=== PATIENT | male | born 1960 | race Caucasian/White ===

== ENCOUNTER 2021-03-21 11:17 | Observation (INO) | payer BC, MEDICARE ==
--- NOTE | 2021-03-21 11:25 | ERPHSYRPT ---
- History of Present Illness Time Seen by Provider: 03/21/21 11:25 Source: patient Exam Limitations: no limitations Physician History: This is a morbidly obese 60-year-old white male who has multiple medical problems including insulin-dependent diabetes, anxiety, hypertension and obesity who was diagnosed 1 week ago with COVID-19 infection at [facility] in [facility]. Patient states that the chest x-ray showed pneumonia. He was sent home with a prescription for Medrol Dosepak and azithromycin. He has completed those prescriptions. However, he continues to have cough, shortness of breath, arthralgias and myalgias. His room air oxygenation on entrance into the emergency department today is 94%. He denies chest pain. He denies nausea vomiting and diarrhea. Timing/Duration: week(s) (1) Cough Quality/Degree: moderate, dry cough Possible Cause: occasional episodes Modifying Factors: Improves With: coughing, deep breath Associated Symptoms: cough, shortness of breath Allergies/Adverse Reactions: No Known Drug Allergies Allergy (Verified 03/21/21 11:45) Home Medications: ARIPiprazole [Aripiprazole] 15 mg PO DAILY 03/21/21 [History] Alendronate Sodium 70 mg [Fosamax 70 MG] 70 mg PO WEEKLY 03/21/21 [History] Aspirin EC 81 mg [Ecotrin 81 mg] 81 mg PO DAILY 03/21/21 [History] Atorvastatin Calcium 80 mg PO DAILY 03/21/21 [History] Clopidogrel Bisulfate 75 mg [PLAVIX 75 MG Tablet] 75 mg PO DAILY 03/21/21 [History] Enalapril Maleate 10 mg [Vasotec 10 MG] 10 mg PO BID 03/21/21 [History] Ezetimibe 10 mg [Zetia 10 MG] 10 mg PO DAILY 03/21/21 [History] Fenofibrate,Micronized 145 mg* [Tricor 145 MG] 145 mg PO DAILY 03/21/21 [ History] Furosemide 40 mg [Lasix 40 MG] 40 mg PO DAILY 03/21/21 [History] Gabapentin 300 mg [Neurontin 300 mg] 300 mg PO DAILY 03/21/21 [History] Icosapent Ethyl [Vascepa] 2 gm PO BID 03/21/21 [History] Insulin Lispro [Humalog] 0 unit SQ TID 03/21/21 [History] Isosorbide Mononitrate 30 mg [Imdur 30 MG] 30 mg PO DAILY 03/21/21 [History] Metformin HCl 850 mg [Glucophage 850 MG] 850 mg PO BID 03/21/21 [History] Metoprolol Tartrate 25 mg [Lopressor 25MG Tab] 25 mg PO BID 03/21/21 [History] Potassium Chloride 10 meq PO DAILY 03/21/21 [History] Pramipexole Di-HCl [Pramipexole Dihydrochloride] 0.25 mg PO HS 03/21/21 [History] Venlafaxine HCl [Venlafaxine HCl ER] 75 mg PO DAILY 03/21/21 [History] Venlafaxine HCl [Venlafaxine HCl ER] 150 mg PO HS 03/21/21 [History] clonazePAM 0.5 mg PO HS 03/21/21 [History] Travel Risk - International Travel Have you traveled outside of the country in past 3 weeks: No - Coronavirus Screening Are you exhibiting any of the following symptoms?: No Close contact with a COVID-19 positive Pt in past 14-21 Days: No - Review of Systems Constitutional: No Symptoms Eyes: No Symptoms Ears, Nose, & Throat: No Symptoms Respiratory: Cough, Dyspnea Cardiac: No Symptoms Abdominal/Gastrointestinal: No Symptoms Genitourinary Symptoms: No Symptoms Musculoskeletal: No Symptoms Skin: No Symptoms Neurological: No Symptoms Psychological: No Symptoms Endocrine: No Symptoms Hematologic/Lymphatic: No Symptoms Immunological/Allergic: No Symptoms All Other Systems: Reviewed and Negative - Past Medical History Pertinent Past Medical History: Yes - Past Surgical History Past Surgical History: Yes - Nursing Vital Signs Nursing Vital Signs: Initial Vital Signs Temperature 99.2 F 03/21/21 11:26 Pulse Rate 104 H 03/21/21 11:26 Respiratory Rate 26 H 03/21/21 11:26 Blood Pressure 173/82 03/21/21 11:26 O2 Sat by Pulse Oximetry 95 03/21/21 11:26 Pain Scale Pain Intensity 0 - Physical Exam General Appearance: mild distress, alert, anxiety, obese Eye Exam: PERRL/EOMI, eyes nml inspection Ears, Nose, Throat Exam: normal ENT inspection, moist mucous membranes Neck Exam: normal inspection, non-tender, supple, full range of motion Respiratory Exam: normal breath sounds, lungs clear, airway intact, No chest tenderness, No respiratory distress Cardiovascular Exam: regular rate/rhythm, normal heart sounds, normal peripheral pulses Gastrointestinal/Abdomen Exam: soft, normal bowel sounds, No tenderness Rectal Exam: not done Back Exam: normal inspection, normal range of motion, No CVA tenderness, No vertebral tenderness Extremity Exam: normal inspection, normal range of motion, pelvis stable Neurologic Exam: alert, oriented x 3, cooperative, 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 Care 03/21/21 11:40 Active EKG-ER Only STAT Care 03/21/21 11:39 Active IV Insertion STAT Care 03/21/21 11:39 Active Pulse Oximetry (ED) STAT Care 03/21/21 11:39 Active CHEST 1 VIEW (PORTABLE) Stat Exams 03/21/21 11:39 Taken BLOOD CULTURE Stat Lab 03/21/21 12:04 Received CBC W DIFF Stat Lab 03/21/21 11:55 Completed CMP Stat Lab 03/21/21 11:55 Completed D-DIMER QUANTITATIVE Stat Lab 03/21/21 11:55 Completed INFLUENZA A+B WILL Stat Lab 03/21/21 12:07 Completed Lactic Acid Stat Lab 03/21/21 12:10 Completed Bland Screen Stat Lab 03/21/21 12:04 Completed NT PRO BNP Stat Lab 03/21/21 11:55 Completed TROPONIN Q3H Lab 03/21/21 11:55 Completed TROPONIN Q3H Lab 03/21/21 14:45 Ordered TROPONIN Q3H Lab 03/21/21 17:45 Ordered TROPONIN Q3H Lab 03/21/21 20:45 Ordered TROPONIN Q3H Lab 03/21/21 23:45 Ordered Medication Summary Generic Name Dose Route Start Last Admin Trade Name Geri PRN Reason Stop Dose Admin Sodium Chloride 1,000 mls @ 100 mls/hr 03/21/21 11:45 03/21/21 11:50 Sodium Chloride 0.9% 1000 Ml IV 04/20/21 11:44 100 mls/hr .Q10H NEEMA Administration Discontinued Medications Generic Name Dose Route Start Last Admin Trade Name Geri PRN Reason Stop Dose Admin Hydrocodone Bitart/Acetaminophen 15 ml 03/21/21 12:14 03/21/21 12:20 Hydrocodone/Acetaminophen 5 Ml Udcup PO 03/21/21 12:15 15 ml STAT STA Administration Hydrocodone Bitart/Acetaminophen Confirm 03/21/21 12:17 Hydrocodone/Acetaminophen 5 Ml Udcup Administered 03/21/21 12:18 Dose 15 ml .ROUTE .STK-MED ONE Albuterol Sulfate 8 gm 03/21/21 12:21 Albuterol Sulfate 8 Gm Mdi Hfa IH 03/21/21 12:22 STAT ONE Methylprednisolone Sodium 0 mg 03/21/21 11:41 03/21/21 11:50 Succinate 125 mg/ Sterile IV 03/21/21 11:42 125 mg Water 2 ml STAT ONE Administration Methylprednisolone Sodium Succinate Confirm 03/21/21 11:44 Methylprednis Sod Succ 125 Mg/2 Ml Vial Administered 03/21/21 11:45 Dose 125 mg .ROUTE .STK-MED ONE Sterile Water Confirm 03/21/21 11:44 Water For Injection,Sterile 10 Ml Vial Administered 03/21/21 11:45 Dose 10 ml IJ .STK-MED ONE Lab/Rad Data: Laboratory Result Diagrams 03/21/21 11:55 03/21/21 11:55 Laboratory Results 03/21/21 03/21/21 03/21/21 Range/Units 12:10 12:07 12:07 WBC (4.0-10.5) K/mm3 RBC (4.1-5.6) M/mm3 Hgb (12.5-18.0) gm/dl Hct (42-50) % MCV (78-100) fl MCH (26-32) pg MCHC (32-36) g/dl RDW (11.5-14.0) % Plt Count (150-450) K/mm3 MPV (7.5-11.0) fl Gran % (36.0-66.0) % Eos # (Auto) (0-0.5) Absolute Lymphs (auto) (1.0-4.6) Absolute Monos (auto) (0.0-1.3) Lymphocytes % (24.0-44.0) % Monocytes % (0.0-12.0) % Eosinophils % (0.00-5.0) % Basophils % (0.0-0.4) % Absolute Granulocytes (1.4-6.9) Basophils # (0-0.4) D-Dimer (215-500) ng/mL Sodium (137-145) mmol/L Potassium (3.5-5.1) mmol/L Chloride (98-107) mmol/L Carbon Dioxide (22-30) mmol/L Anion Gap (5-15) MEQ/L BUN (9-20) mg/dL Creatinine (0.66-1.25) mg/dL Estimated GFR ML/MIN Glucose (74-106) mg/dL Lactic Acid 3.2 H (0.4-2.0) Calcium (8.4-10.2) mg/dL Total Bilirubin (0.2-1.3) mg/dL AST (17-59) U/L ALT (0-50) U/L Alkaline Phosphatase (38-126) U/L Troponin I (0.000-0.034) ng/mL NT-Pro-B Natriuret Pep (0-900) pg/mL Serum Total Protein (6.3-8.2) g/dL Albumin (3.5-5.0) g/dL Monoscreen (Negative) Influenza Type A Ag NEGATIVE (NEGATIVE) Influenza Type B Ag NEGATIVE (NEGATIVE) Group A Strep Antibody NOT DETECTED (NEGATIVE) 03/21/21 03/21/21 03/21/21 Range/Units 12:04 11:55 11:55 WBC (4.0-10.5) K/mm3 RBC (4.1-5.6) M/mm3 Hgb (12.5-18.0) gm/dl Hct (42-50) % MCV (78-100) fl MCH (26-32) pg MCHC (32-36) g/dl RDW (11.5-14.0) % Plt Count (150-450) K/mm3 MPV (7.5-11.0) fl Gran % (36.0-66.0) % Eos # (Auto) (0-0.5) Absolute Lymphs (auto) (1.0-4.6) Absolute Monos (auto) (0.0-1.3) Lymphocytes % (24.0-44.0) % Monocytes % (0.0-12.0) % Eosinophils % (0.00-5.0) % Basophils % (0.0-0.4) % Absolute Granulocytes (1.4-6.9) Basophils # (0-0.4) D-Dimer 399 (215-500) ng/mL Sodium (137-145) mmol/L Potassium (3.5-5.1) mmol/L Chloride (98-107) mmol/L Carbon Dioxide (22-30) mmol/L Anion Gap (5-15) MEQ/L BUN (9-20) mg/dL Creatinine (0.66-1.25) mg/dL Estimated GFR ML/MIN Glucose (74-106) mg/dL Lactic Acid (0.4-2.0) Calcium (8.4-10.2) mg/dL Total Bilirubin (0.2-1.3) mg/dL AST (17-59) U/L ALT (0-50) U/L Alkaline Phosphatase (38-126) U/L Troponin I 0.127 H* (0.000-0.034) ng/mL NT-Pro-B Natriuret Pep (0-900) pg/mL Serum Total Protein (6.3-8.2) g/dL Albumin (3.5-5.0) g/dL Monoscreen NEGATIVE (Negative) Influenza Type A Ag (NEGATIVE) Influenza Type B Ag (NEGATIVE) Group A Strep Antibody (NEGATIVE) 03/21/21 03/21/21 Range/Units 11:55 11:55 WBC 6.2 (4.0-10.5) K/mm3 RBC 5.27 (4.1-5.6) M/mm3 Hgb 15.7 (12.5-18.0) gm/dl Hct 47.1 (42-50) % MCV 89.4 (78-100) fl MCH 29.8 (26-32) pg MCHC 33.3 (32-36) g/dl RDW 14.9 H (11.5-14.0) % Plt Count 153 (150-450) K/mm3 MPV 11.3 H (7.5-11.0) fl Gran % 66.6 H (36.0-66.0) % Eos # (Auto) 0 (0-0.5) Absolute Lymphs (auto) 1.10 (1.0-4.6) Absolute Monos (auto) 0.94 (0.0-1.3) Lymphocytes % 17.9 L (24.0-44.0) % Monocytes % 15.3 H (0.0-12.0) % Eosinophils % 0.0 (0.00-5.0) % Basophils % 0.2 (0.0-0.4) % Absolute Granulocytes 4.11 (1.4-6.9) Basophils # 0.01 (0-0.4) D-Dimer (215-500) ng/mL Sodium 135 L (137-145) mmol/L Potassium 3.9 (3.5-5.1) mmol/L Chloride 96 L (98-107) mmol/L Carbon Dioxide 27 (22-30) mmol/L Anion Gap 5.9 (5-15) MEQ/L BUN 16 (9-20) mg/dL Creatinine 0.81 (0.66-1.25) mg/dL Estimated GFR > 60.0 ML/MIN Glucose 222 H (74-106) mg/dL Lactic Acid (0.4-2.0) Calcium 9.1 (8.4-10.2) mg/dL Total Bilirubin 0.90 (0.2-1.3) mg/dL AST 129 H (17-59) U/L ALT 137 H (0-50) U/L Alkaline Phosphatase 75 (38-126) U/L Troponin I (0.000-0.034) ng/mL NT-Pro-B Natriuret Pep 462 (0-900) pg/mL Serum Total Protein 7.8 (6.3-8.2) g/dL Albumin 4.4 (3.5-5.0) g/dL Monoscreen (Negative) Influenza Type A Ag (NEGATIVE) Influenza Type B Ag (NEGATIVE) Group A Strep Antibody (NEGATIVE) - Progress Progress: improved Air Movement: fair Progress Note: 03/21/21 13:28 Chest x-ray shows bibasilar infiltrates without consolidation consistent with COVID-19 pneumonia Blood Culture(s) Obtained: Yes Antibiotics given: No Discussed with : Other (Dr. Mitchell) Counseled pt/family regarding: lab results, diagnosis, rad results - Departure Departure Disposition: In-patient Admission Clinical Impression: Pneumonia due to COVID-19 virus, NSTEMI (non-ST elevated myocardial infarction) Condition: Fair Critical Care Time: Yes Referrals: WANDY AHWKINS [Family Provider] - Follow up/PCP as directed
[2021-03-21] MEDS ORDERED: solu-MEDROL 125 MG, Sterile H2O 10 ml 2 ML IV ONE ×2 (11:41)
[2021-03-21] MEDS ORDERED: solu-MEDROL ONE (11:44)
[2021-03-21] MEDS ORDERED: Sterile H2O 10 ml IJ ONE (11:44)
[2021-03-21] MEDS ORDERED: Sodium Chloride 0.9% 1000 ML 1,000 ML ONE (11:44)
[2021-03-21] MEDS ORDERED: Sodium Chloride 0.9% 1000 ML 1,000 ML IV SCH (11:45)
[2021-03-21] MEDS ORDERED: HYDROCODONE-ACETAMIN 2.5-108/5 ML SOLUTION PO STA (12:14)
[2021-03-21] MEDS ORDERED: HYDROCODONE-ACETAMIN 2.5-108/5 ML SOLUTION ONE (12:17)
[2021-03-21 12:18] LABS: Absolute Neutrophil Ct (ANC) 4.11 (1.4-6.9); Basophil (Absolute #) 0.01 (0-0.4); Eosinophil (Absolute #) 0 (0-0.5); Hematocrit 47.1 % (42-50); Hemoglobin 15.7 gm/dl (12.5-18.0); Lymphocytes % 17.9 % (24.0-44.0); Mean Cell Volume 89.4 fl (78-100); Mean Corpuscular Hemoglobin 29.8 pg (26-32); Mean Corpuscular Hgb Concent. 33.3 g/dl (32-36); Mean Platelet Volume 11.3 fl (7.5-11.0); Monocyte (Absolute #) 0.94 (0.0-1.3); Monocytes % 15.3 % (0.0-12.0); Neutrophil % 66.6 % (36.0-66.0); Platelet Count 153 K/mm3 (150-450); Red Blood Count 5.27 M/mm3 (4.1-5.6); Red Cell Distribution Width 14.9 % (11.5-14.0); White Blood Count 6.2 K/mm3 (4.0-10.5)
[2021-03-21] MEDS ORDERED: Ventolin Hfa MDI IH ONE (12:21)
[2021-03-21 12:31] LABS: ALBUMIN 4.4 g/dL (3.5-5.0); ALKALINE PHOSPHATASE 75 U/L (38-126); BLOOD UREA NITROGEN 16 mg/dL (9-20); CHLORIDE 96 mmol/L (98-107); Calcium 9.1 mg/dL (8.4-10.2); Carbon Dioxide 27 mmol/L (22-30); Creatinine 1 0.81 mg/dL (0.66-1.25); EST GLOMERULAR FILTRATION RATE > 60.0 ML/MIN; Glucose 222 mg/dL (74-106); Potassium 3.9 mmol/L (3.5-5.1); SGOT/AST 129 U/L (17-59); SGPT/ALT 137 U/L (0-50); SODIUM 135 mmol/L (137-145); Total Protein 7.8 g/dL (6.3-8.2)
[2021-03-21 12:32] LABS: ANION GAP 5.9 MEQ/L (5-15)
[2021-03-21 12:36] LABS: NT PRO BNP 462 pg/mL (0-900)
[2021-03-21 12:37] LABS: INFLUENZA A NEGATIVE (NEGATIVE); INFLUENZA B NEGATIVE (NEGATIVE)
[2021-03-21] MEDS ORDERED: VENTOLIN COMMON CANISTER IH ONE (13:25)
[2021-03-21] MEDS ORDERED: ENOXAPARIN SODIUM SQ STA (13:33)
[2021-03-21] MEDS ORDERED: XYLOCAINE HCl Viscous MM ONE (13:57)
[2021-03-21] MEDS ORDERED: XYLOCAINE HCl Viscous ONE (14:06)
[2021-03-21] MEDS ORDERED: ENOXAPARIN SODIUM SQ ONE (14:06)
[2021-03-21] MEDS ORDERED: HUMALOG SQ PRN ×2 (14:49→17:42)
[2021-03-21] MEDS ORDERED: Zofran 4 MG/2 ML VIAL IV PRN (14:49)
[2021-03-21] MEDS ORDERED: HYDROCODONE-CHLORPHEN ER SUSP PO PRN (14:49)
[2021-03-21] MEDS ORDERED: TYLENOL EXTRA STRENGTH 500 MG PO PRN (14:49)
[2021-03-21] MEDS ORDERED: Ativan 1 MG PO PRN (14:49)
[2021-03-21] MEDS: Sodium Chloride 0.9% 1000 ML 1,000 ML IV SCH (15:51)
[2021-03-21] MEDS ORDERED: REMDESIVIR 200 MG in Sodium Chloride 0.9% 250 ML 250 ML IV ONE (16:00)
[2021-03-21] MEDS ORDERED: MEDICATION INTERVENTION MC SCH (16:45)
[2021-03-21] MEDS: Abilify 10 MG PO SCH (16:55)
[2021-03-21] MEDS: Glucophage 850 MG PO SCH (16:57)
[2021-03-21] MEDS: Klor Con 10 MEQ PO SCH (17:00)
[2021-03-21] MEDS ORDERED: NON-FORMULARY ITEM SQ SCH (17:00)
[2021-03-21] MEDS ORDERED: PATIENT OWN MEDICATION SQ SCH (17:00)
[2021-03-21] MEDS: Imdur 30 MG PO SCH (17:01)
[2021-03-21] MEDS: ECOTRIN 81 MG PO SCH (17:01)
[2021-03-21] MEDS: PLAVIX 75 MG Tablet PO SCH (17:01)
[2021-03-21] MEDS: ZOCOR 20MG PO SCH (17:01)
[2021-03-21] MEDS: NEURONTIN 300 MG PO SCH (17:01)
[2021-03-21] MEDS: Lasix 40 MG PO SCH (17:02)
[2021-03-21] MEDS: Tricor 145 MG PO SCH (17:02)
[2021-03-21] MEDS ORDERED: Nicoderm CQ 21 MG TOP SCH ×2 (17:30→22:00)
[2021-03-21] MEDS ORDERED: Ativan 2 MG/1 ML VIAL IV PRN (17:42)
--- NOTE | 2021-03-21 18:54 | XRAY ---
Indication: Cough. Positive Covid 19. Comparison: None Portable chest demonstrates bilateral mid to lower lung hazy interstitial alveolar opacities without consolidation/large effusion. Heart not enlarged. Bony thorax intact with mild osteopenia and degenerative changes.
[2021-03-21] MEDS: VENTOLIN COMMON CANISTER IH SCH (19:20)
[2021-03-21] MEDS: Vasotec 10 MG PO SCH (21:52)
[2021-03-21] MEDS: Lopressor 50 MG PO SCH (21:52)
[2021-03-21] MEDS ORDERED: Zetia 10 MG PO SCH (22:00)
[2021-03-21] MEDS ORDERED: clonazePAM PO SCH (22:00)
[2021-03-21] MEDS ORDERED: Effexor XR 75 MG PO SCH (22:00)
[2021-03-21] MEDS ORDERED: NON-FORMULARY ITEM (Icosapent Ethyl [Vascepa] 1 GM Capsule) PO SCH (22:00)
[2021-03-21] MEDS ORDERED: NON-FORMULARY ITEM (Pramipexole Di-Hcl [Pramipexole Dihydrochloride] 0.25 MG Tablet) PO SCH (22:00)
[2021-03-21] MEDS ORDERED: Mirapex 0.5 MG Tablet PO SCH (22:00)
[2021-03-21] MEDS ORDERED: Lopressor 25MG Tab PO SCH (22:00)
[2021-03-21] MEDS ORDERED: NON-FORMULARY ITEM (Venlafaxine Hcl [Venlafaxine Hcl Er] 150 MG Tab.Er.24) PO SCH (22:00)
[2021-03-22] MEDS: Sodium Chloride 0.9% 1000 ML 1,000 ML IV SCH (05:53)
[2021-03-22 06:38] LABS: Hematocrit 45.9 % (42-50); Hemoglobin 15.1 gm/dl (12.5-18.0); Mean Cell Volume 89.8 fl (78-100); Mean Corpuscular Hemoglobin 29.5 pg (26-32); Mean Corpuscular Hgb Concent. 32.9 g/dl (32-36); Mean Platelet Volume 11.6 fl (7.5-11.0); Platelet Count 182 K/mm3 (150-450); Red Blood Count 5.11 M/mm3 (4.1-5.6); Red Cell Distribution Width 14.6 % (11.5-14.0); White Blood Count 4.5 K/mm3 (4.0-10.5)
[2021-03-22] MEDS: VENTOLIN COMMON CANISTER IH SCH (07:08)
[2021-03-22 07:13] LABS: ALBUMIN 4.1 g/dL (3.5-5.0); ALKALINE PHOSPHATASE 62 U/L (38-126); ANION GAP 15.7 MEQ/L (5-15); BLOOD UREA NITROGEN 25 mg/dL (9-20); CHLORIDE 99 mmol/L (98-107); Calcium 8.9 mg/dL (8.4-10.2); Carbon Dioxide 29 mmol/L (22-30); Creatinine 1 0.95 mg/dL (0.66-1.25); EST GLOMERULAR FILTRATION RATE > 60.0 ML/MIN; Potassium 4.2 mmol/L (3.5-5.1); SGOT/AST 73 U/L (17-59); SGPT/ALT 117 U/L (0-50); SODIUM 140 mmol/L (137-145); Total Protein 7.2 g/dL (6.3-8.2)
[2021-03-22 07:42] LABS: Glucose 49 mg/dL (74-106)
[2021-03-22] MEDS ORDERED: HYDROCODONE-ACETAMIN 10-325 MG PO PRN (07:42)
[2021-03-22] MEDS: Glucophage 850 MG PO SCH (07:53)
[2021-03-22 08:04] VITALS: BP 105/80
[2021-03-22] MEDS: NEURONTIN 300 MG PO SCH (09:06)
[2021-03-22] MEDS: PLAVIX 75 MG Tablet PO SCH (09:06)
[2021-03-22] MEDS: Lasix 40 MG PO SCH (09:06)
[2021-03-22] MEDS: Imdur 30 MG PO SCH (09:06)
[2021-03-22] MEDS: Lopressor 50 MG PO SCH (09:07)
[2021-03-22] MEDS: Vasotec 10 MG PO SCH (09:07)
[2021-03-22] MEDS: Klor Con 10 MEQ PO SCH (09:08)
[2021-03-22] MEDS: ECOTRIN 81 MG PO SCH (09:08)
[2021-03-22] MEDS: Abilify 10 MG PO SCH (09:08)
[2021-03-22] MEDS: ZOCOR 20MG PO SCH (09:08)
[2021-03-22] MEDS: Tricor 145 MG PO SCH (09:10)
[2021-03-22] MEDS ORDERED: NON-FORMULARY ITEM (Atorvastatin Calcium [Atorvastatin Calcium] 80 MG Tablet) PO SCH (10:00)
[2021-03-22] MEDS ORDERED: ENOXAPARIN SODIUM SQ SCH ×2 (10:00)
[2021-03-22] MEDS ORDERED: ARIPIPRAZOLE 15 MG PO SCH (10:00)
[2021-03-22] MEDS ORDERED: DECADRON 10MG INJ. IV SCH (10:00)
[2021-03-22 10:43] VITALS: PULSE 75; O2SAT 96
[2021-03-22] MEDS ORDERED: REMDESIVIR 100 MG in Sodium Chloride 0.9% 100 ML BAG 100 ML IV SCH (16:00)
--- NOTE | 2021-03-23 11:19 | HP ---
CHIEF COMPLAINT: Muscle pain, achiness, cannot sleep, cough, positive COVID test. HISTORY OF PRESENT ILLNESS: The patient is a 60-year-old white male who was seen at [facility] and diagnosed with COVID. He was told he had COVID pneumonia and was sent home on Medrol Dosepak and Zithromax. He completed his prescription however he continues to have a cough, shortness of breath, arthralgia and myalgia. His O2 saturation was 94% and he returned to the emergency room. He denies chest pain. He does not have any nausea, vomiting or diarrhea. No problems eating. Just mainly the pain, shortness of breath and feeling terrible. TRAVEL RISK: He has not gone any place except for [facility] when started the coughing and feeling bad one week ago. CORONAVIRUS SCREENING: He states he has not been in contact with any COVID. MEDICATIONS: Home medications of Aripiprazole 15 q.d., alendronate 70 mg once a week, aspirin 81 q.d., atorvastatin 80 q.d., Plavix 75 q.d., Vasotec 10 b.i.d., Zetia 10 mg q.d., Tricor 140 q.d., Lasix 40 q.d., Neurontin 300 q.d., Vascepa 2 gm b.i.d., Humalog 10 before meals, isosorbide mononitrate 30 q.d., Glucophage 850 q.d., Lopressor 25 b.i.d., KCL 10 q.d., Pramipexole 0.25 q.d., Effexor Extended Release 75 q.d. and 150 q.d., clonazepam 0.5 h.s. ALLERGIES: NKDA. PAST MEDICAL HISTORY: He has multiple health problems including morbid obesity, diabetes mellitus, chronic obstructive pulmonary disease, arthritis, coronary artery disease and hyperlipidemia. PAST SURGICAL HISTORY: Tonsillectomy. Appendectomy. Orthopedic surgery. REVIEW OF SYSTEMS: CONSTITUTIONAL: Aching all over. HEENT: Eyes - No symptoms. Sore throat. CHEST: Frequent cough mildly productive. CVS: No symptoms. He has had a heart attack in the past. He has hyperlipidemia. ABDOMEN: No nausea or vomiting. MUSCULOSKELETAL: Just achiness all over his chest muscles, leg muscles, back. PSYCHOLOGIC: The patient suffers from chronic anxiety. PHYSICAL EXAMINATION: The patient is alert, orientated, heavy man who is pleasant and is eating very well. VITAL SIGNS: Temperature 99F, pulse 104, respirations 26, blood pressure 170/80. O2 saturation 95%. HEENT: Pupils equal and reactive to light. NECK: No lymph nodes. No thyromegaly. CHEST: Clear. CVS: No murmurs or gallops. ABDOMEN: Soft, obese. No masses or organomegaly. SKIN: Warm, dry. No cyanosis. LAB DATA AND TESTS: EKG sinus tach left bundle branch block. No acute changes. IMPRESSION: The patient has COVID with some residual symptoms. It seems to make him feel extremely bad. He seems to be very worried about that and his chronic anxiety made worse by the COVID symptoms. He was told that he had bilateral pneumonia at [facility]. His chest x-ray is not bad right now here. His lactic acid is slightly at high at 3.2. His D-dimer is normal at 399, white count 6.2. The troponin is minimally elevated at 0.127 which we usually see with the COVID. He is having no chest pain, no angina he states. Liver enzymes are mildly elevated AST 129, ALT 137 probably related to weight. BNP is normal at 460. His chest x-ray does show bibasilar infiltrates without consolidation. PLAN: The patient will be treated with COVID drugs including Remdesivir and Decadron. I think we will anticoagulate him due to elevated troponin. PROGNOSIS: Morris to be quite good.
--- NOTE | 2021-03-24 12:47 | DS ---
ADMISSION DIAGNOSES: 1) COVID. 2) Gastroenteritis. 3) Diabetes mellitus insulin dependent. 4) Hypertension. 5) Obesity. 6) COVID pneumonia. DISCHARGE DIAGNOSES: 1) COVID PNEUMONIA. 2) GASTROENTERITIS. 3) DIABETES MELLITUS INSULIN DEPENDENT. 4) HYPERTENSION. 5) OBESITY. 6) COVID PNEUMONIA. 7) CHRONIC ANXIETY. 8) HYPERLIPIDEMIA. HOSPITAL COURSE: The patient was treated with Remdesivir, Decadron, anticoagulation with Lovenox. He had severe achiness. Shortness of breath improved during basically the two day stay. He did not require oxygen. His O2 stayed above 90%. He had some blood cultures that were positive however he never ran any temperatures, white count is normal and I feel that is contaminant. His labs were really normal. BNP was 377. D-dimer 431. He was discharged home on his home medications to follow up with his physician in two weeks. PROGNOSIS: Good.
[2021-03-27] MEDS ORDERED: Fosamax 70 MG PO SCH (06:00)
== END 2021-03-22 11:45 | disposition home or self-care (01) ==
LOC: ED 11:17 → MED SURG 14:45 → INTOOBSV 14:46 → OBSVTOIN 14:46
PROVIDERS: ADMIT Family Medicine; ATTEND Family Medicine
DX: U07.1 COVID-19 (principal); J12.82 Pneumonia due to coronavirus disease 2019; K52.9 Noninfective gastroenteritis and colitis, unspecified; E11.9 Type 2 diabetes mellitus without complications; I10 Essential (primary) hypertension; E66.9 Obesity, unspecified; F41.9 Anxiety disorder, unspecified; E78.5 Hyperlipidemia, unspecified; J44.9 Chronic obstructive pulmonary disease, unspecified; I25.10 Atherosclerotic heart disease of native coronary artery without angina pectoris; Z79.899 Other long term (current) drug therapy; Z79.01 Long term (current) use of anticoagulants
CPT/HCPCS: 36415; 71045; 80053; 83036; 83605; 83880; 84484; 85025; 85027; 85379; 86308; 87040; 87400; 87651; 93005; 93041; 93268; 94640; 94660; 94760; 94762; 96372; 96374; 99285; G0378; J0248; J1100; J1650; J2930; A9270-GY

== ENCOUNTER 2021-03-25 15:45 | Observation (INO) | payer MEDICARE ==
[2021-03-25] MEDS ORDERED: REMDESIVIR 200 MG in Sodium Chloride 0.9% 250 ML 250 ML IV ONE (16:23)
[2021-03-25] MEDS ORDERED: DECADRON 10MG INJ. IV ONE (16:23)
[2021-03-25] MEDS ORDERED: DECADRON 10MG INJ. ONE (16:38)
[2021-03-25 17:01] LABS: Mean Cell Volume 88.7 fl (78-100); Mean Corpuscular Hemoglobin 29.6 pg (26-32); Mean Corpuscular Hgb Concent. 33.3 g/dl (32-36); Mean Platelet Volume 11.1 fl (7.5-11.0); Platelet Count 204 K/mm3 (150-450); Red Blood Count 5.41 M/mm3 (4.1-5.6); Red Cell Distribution Width 14.4 % (11.5-14.0); White Blood Count 6.7 K/mm3 (4.0-10.5)
--- NOTE | 2021-03-25 17:02 | XRAY ---
Indication: Short of breath. Comparison: March 21, 2021. Portable chest unchanged again demonstrating mild bilateral mid to lower lung hazy interstitial alveolar opacities without consolidation/large effusion. Heart not enlarged. No new cardiopulmonary abnormalities.
[2021-03-25 17:12] LABS: ALBUMIN 4.1 g/dL (3.5-5.0); ALKALINE PHOSPHATASE 99 U/L (38-126); ANION GAP 14.9 MEQ/L (5-15); BLOOD UREA NITROGEN 19 mg/dL (9-20); CHLORIDE 101 mmol/L (98-107); Calcium 9.5 mg/dL (8.4-10.2); Carbon Dioxide 27 mmol/L (22-30); Creatinine 1 0.66 mg/dL (0.66-1.25); EST GLOMERULAR FILTRATION RATE > 60.0 ML/MIN; Glucose 191 mg/dL (74-106); Potassium 4.1 mmol/L (3.5-5.1); SGOT/AST 94 U/L (17-59); SGPT/ALT 136 U/L (0-50); SODIUM 139 mmol/L (137-145); Total Protein 7.1 g/dL (6.3-8.2)
--- NOTE | 2021-03-25 17:53 | ERPHSYRPT ---
- History of Present Illness Time Seen by Provider: 03/25/21 15:55 Source: patient Exam Limitations: no limitations Patient Subjective Stated Complaint: Pt states "I cannot breath." Triage Nursing Assessment: Pt presented alert and oriented X 3, skin pwd. Pt ambulates with an upright steady gait, able to speak in clear full sentences. Pt tachypniec, occasional cough. Pt respirations eased as he sat on bed. Physician History: Patient is a 60-year-old male recently discharged from our hospital Covid unit presents to our ED with progressive shortness of breath. Patient states "I cannot breathe". Shortness of breath worse with exertion. Symptoms improved with rest. Patient was tachypneic upon arrival. No chest pain. Patient admits to occasional dry coughs. No nausea or vomiting. No diaphoresis. No rash. No fever. No diarrhea. Symptoms are moderate in intensity. Patient voices no other complaints or concerns at this time. Timing/Duration: today Activities at Onset: none Severity of Dyspnea-Max: moderate Severity of Dyspnea-Current: mild Possible Cause: occasional episodes, illness exposure (Covid positive) Modifying Factors: Improves With: activity Associated Symptoms: cough, No edema, No fever, No loss of appetite, No wheezing, No weakness, No ankle swelling, No dizziness, No lightheadedness, No leg swelling, No muscle spasms feet, No muscle spasms hands, No tightness Allergies/Adverse Reactions: No Known Drug Allergies Allergy (Verified 03/21/21 15:45) Home Medications: ARIPiprazole [Aripiprazole] 15 mg PO DAILY 03/21/21 [History] Alendronate Sodium 70 mg [Fosamax 70 MG] 70 mg PO WEEKLY 03/21/21 [History] Aspirin EC 81 mg [Ecotrin 81 mg] 81 mg PO DAILY 03/21/21 [History] Atorvastatin Calcium 80 mg PO DAILY 03/21/21 [History] Clopidogrel Bisulfate 75 mg [PLAVIX 75 MG Tablet] 75 mg PO DAILY 03/21/21 [History] Enalapril Maleate 10 mg [Vasotec 10 MG] 10 mg PO BID 03/21/21 [History] Ezetimibe 10 mg [Zetia 10 MG] 10 mg PO HS 03/21/21 [History] Fenofibrate,Micronized 145 mg* [Tricor 145 MG] 145 mg PO DAILY 03/21/21 [ History] Furosemide 40 mg [Lasix 40 MG] 40 mg PO DAILY 03/21/21 [History] Gabapentin 300 mg [Neurontin 300 mg] 300 mg PO DAILY 03/21/21 [History] Icosapent Ethyl [Vascepa] 2 gm PO BID 03/21/21 [History] Insulin Lispro [Humalog] 0 unit SQ TID 03/21/21 [History] Isosorbide Mononitrate 30 mg [Imdur 30 MG] 30 mg PO DAILY 03/21/21 [History] Metformin HCl 850 mg [Glucophage 850 MG] 850 mg PO BID 03/21/21 [History] Metoprolol Tartrate 25 mg [Lopressor 25MG Tab] 25 mg PO BID 03/21/21 [History] Potassium Chloride 10 meq PO DAILY 03/21/21 [History] Pramipexole Di-HCl [Pramipexole Dihydrochloride] 0.25 mg PO HS 03/21/21 [History] Venlafaxine HCl [Venlafaxine HCl ER] 150 mg PO HS 03/21/21 [History] clonazePAM 0.5 mg PO HS 03/21/21 [History] Hx Tetanus, Diphtheria Vaccination/Date Given: No Hx Influenza Vaccination/Date Given: Yes Hx Pneumococcal Vaccination/Date Given: Yes Immunizations Up to Date: Yes Travel Risk - International Travel Have you traveled outside of the country in past 3 weeks: No - Coronavirus Screening Are you exhibiting any of the following symptoms?: Yes Symptoms: Cough: New Onset, Shortness of Breath Close contact with a COVID-19 positive Pt in past 14-21 Days: No - Vaccine Status Have you recieved a Covid-19 vaccination: Yes 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 - Vaccination Dates Date of 2cond Vaccination (if applicable): unknown - Review of Systems Constitutional: No Symptoms, No Fever, No Chills Eyes: No Symptoms Ears, Nose, & Throat: No Symptoms Respiratory: No Symptoms, No Cough, No Dyspnea Cardiac: No Symptoms, No Chest Pain, No Edema, No Syncope Abdominal/Gastrointestinal: No Symptoms, No Abdominal Pain, No Nausea, No V omiting, No Diarrhea Genitourinary Symptoms: No Symptoms, No Dysuria Musculoskeletal: No Symptoms, No Back Pain, No Neck Pain Skin: No Symptoms, No Rash Neurological: No Symptoms, No Dizziness, No Focal Weakness, No Sensory Changes Psychological: No Symptoms Endocrine: No Symptoms Hematologic/Lymphatic: No Symptoms Immunological/Allergic: No Symptoms All Other Systems: Reviewed and Negative - Past Medical History Pertinent Past Medical History: Yes Cardiac History: Congestive Heart Failure, Hypertension Respiratory History: COPD Endocrine Medical History: Diabetes Type II Psycho-Social History: Anxiety, Depression - Past Surgical History Past Surgical History: Yes Gastrointestinal: Appendectomy Musculoskeletal: Orthopedic Surgery - Social History Smoking Status: Current every day smoker How long have you smoked: years Exposure to second hand smoke: Yes Drug Use: none Patient Lives Alone: No - Nursing Vital Signs Nursing Vital Signs: Initial Vital Signs Temperature 97.6 F 03/25/21 15:50 Pulse Rate 105 H 03/25/21 15:50 Respiratory Rate 28 H 03/25/21 15:50 Blood Pressure 180/77 03/25/21 15:50 O2 Sat by Pulse Oximetry 95 03/25/21 15:50 Pain Scale Pain Intensity 4 - Physical Exam General Appearance: no apparent distress, alert, No other Eye Exam: PERRL/EOMI, eyes nml inspection, No scleral icterus Ears, Nose, Throat Exam: hearing grossly normal, normal ENT inspection, normal pharynx Neck Exam: normal inspection, supple, full range of motion, No non-tender Respiratory Exam: respiratory distress, airway intact, diminished breath sounds, accessory muscle use, rhonchi Cardiovascular/Chest Exam: normal heart sounds, regular rate/rhythm, normal peripheral pulses Abdominal/Gastrointestinal Exam: soft, normal bowel sounds, No tenderness, No distention, No mass, No guarding Extremity Exam: non-tender, normal range of motion, normal inspection, no calf tenderness, no pedal edema Neurologic Exam: alert, oriented x 3, 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 No reciprocal changes.), NORMAL AXIS - Radiology Exams Chest X-ray Interpretation: Teleradiologist Report (Portable chest unchanged again demonstrating mild bilateral mid to lower lung hazy interstitial alveolar opacities without consolidation or large effusion. Heart not enlarged. No new cardiopulmonary abnormalities.) - CT Exams Chest CT Interpretation: Tele-radiologist Report (No comps. Respiration artifact limits PE evaluation. No central PE. 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 03/25/21 16:22 Active IV Insertion STAT Care 03/25/21 16:22 Active Pulse Oximetry (ED) STAT Care 03/25/21 16:22 Active CHEST 1 VIEW (PORTABLE) Stat Exams 03/25/21 16:22 Completed CHEST WITH CONTRAST [CT] Stat Exams 03/25/21 18:10 Taken BLOOD CULTURE Stat Lab 03/25/21 16:48 Received CBC W DIFF Stat Lab 03/25/21 16:10 Completed CMP Stat Lab 03/25/21 16:10 Completed Manual Differential NC Stat Lab 03/25/21 16:10 Completed TROPONIN Q3H Lab 03/25/21 16:10 Completed TROPONIN Q3H Lab 03/25/21 19:30 Ordered TROPONIN Q3H Lab 03/25/21 22:30 Ordered TROPONIN Q3H Lab 03/26/21 01:30 Ordered TROPONIN Q3H Lab 03/26/21 04:30 Ordered Transfer Order Routine Transfer 03/25/21 Ordered Medication Summary Generic Name Dose Route Start Last Admin Trade Name Freq PRN Reason Stop Dose Admin Albuterol Sulfate 4 puff 03/25/21 18:12 Albuterol Common Canister Inhaler IH 04/24/21 18:11 Q4H PRN PRN SHORTNESS OF BREATH/WHEEZING Discontinued Medications Generic Name Dose Route Start Last Admin Trade Name Freq PRN Reason Stop Dose Admin Dexamethasone Sodium Phosphate 8 mg 03/25/21 16:23 03/25/21 16:41 Dexamethasone Sod Phosphate 10 Mg/Ml IV 03/25/21 16:24 8 mg STAT ONE Administration Dexamethasone Sodium Phosphate Confirm 03/25/21 16:38 Dexamethasone Sod Phosphate 10 Mg/Ml Administered 03/25/21 16:39 Dose 10 mg .ROUTE .STK-MED ONE Enoxaparin Sodium 40 mg 03/25/21 18:04 03/25/21 18:08 Enoxaparin Sodium 40 Mg/0.4 Ml Syringe SQ 03/25/21 18:05 40 mg STAT ONE Administration Enoxaparin Sodium Confirm 03/25/21 18:06 Enoxaparin Sodium 80 Mg/0.8 Ml Syringe Administered 03/25/21 18:07 Dose 80 mg SQ .STK-MED ONE Remdesivir 200 mg/ Sodium 250 mls @ 125 mls/hr 03/25/21 16:23 03/25/21 16:40 Chloride IV 03/25/21 18: Not Given ONCE ONE Lab/Rad Data: Laboratory Result Diagrams 03/25/21 16:10 03/25/21 16:10 Laboratory Results 03/25/21 03/25/21 03/25/21 Range/Units 16:10 16:10 16:10 WBC 6.7 (4.0-10.5) K/mm3 RBC 5.41 (4.1-5.6) M/mm3 Hgb 16.0 (12.5-18.0) gm/dl Hct 48.0 (42-50) % MCV 88.7 (78-100) fl MCH 29.6 (26-32) pg MCHC 33.3 (32-36) g/dl RDW 14.4 H (11.5-14.0) % Plt Count 204 (150-450) K/mm3 MPV 11.1 H (7.5-11.0) fl Segmented Neutrophils 66 (36.-66.) % Band Neutrophils 1 (0.0-2.0) % Lymphocytes (Manual) 27 (24-44) % Monocytes (Manual) 5 (0.0-12.0) % Eosinophils (Manual) 1 (0.00-3.0) % Platelet Estimate NORMAL (NORMAL) RBC Morphology NORMAL Sodium 139 (137-145) mmol/L Potassium 4.1 (3.5-5.1) mmol/L Chloride 101 (98-107) mmol/L Carbon Dioxide 27 (22-30) mmol/L Anion Gap 14.9 (5-15) MEQ/L BUN 19 (9-20) mg/dL Creatinine 0.66 (0.66-1.25) mg/dL Estimated GFR > 60.0 ML/MIN Glucose 191 H (74-106) mg/dL Calcium 9.5 (8.4-10.2) mg/dL Total Bilirubin 0.60 (0.2-1.3) mg/dL AST 94 H (17-59) U/L ALT 136 H (0-50) U/L Alkaline Phosphatase 99 (38-126) U/L Troponin I 0.017 (0.000-0.034) ng/mL Serum Total Protein 7.1 (6.3-8.2) g/dL Albumin 4.1 (3.5-5.0) g/dL - Progress Progress: improved Air Movement: good Progress Note: Patient reassessed. Patient comfortable at rest. Patient become somewhat tachypneic during conversation. CTA chest reveals mild bilateral mid to lower lung peripheral patchy airspace disease without effusion or consolidation. The chest x-ray appears unchanged from previous. Glucose 191. Mild transaminitis. Patient received Decadron, remdesivir, Lovenox and albuterol. Case discussed with Dr. Mitchell who accepts admission to observation. 03/25/21 19:13 Portions of this note were created with voice recognition technology. There may be grammatical, spelling, punctuation or sound alike errors Blood Culture(s) Obtained: No Antibiotics given: No Counseled pt/family regarding: lab results, diagnosis, rad results - Departure Departure Disposition: Observation Clinical Impression: COVID-19, Hyperglycemia, Transaminitis, Respiratory distress Condition: Stable Critical Care Time: No Referrals: LUISITO MONROE [Primary Care Provider] - Follow up/PCP as directed
[2021-03-25 18:00] LABS: BAND 1 % (0.0-2.0); Eosinophil 1 % (0.00-3.0); Lymphocytes 27 % (24-44); Monocyte 5 % (0.0-12.0); Neutrophils 66 % (36.-66.); Platelet Estimate NORMAL (NORMAL); Total Cells Counted 100
[2021-03-25] MEDS ORDERED: ENOXAPARIN SODIUM SQ ONE ×2 (18:04→18:06)
[2021-03-25] MEDS ORDERED: VENTOLIN COMMON CANISTER IH PRN ×2 (18:12→19:45)
[2021-03-25] MEDS ORDERED: TYLENOL 325 MG PO PRN (19:45)
[2021-03-25] MEDS ORDERED: Sodium Chloride 0.9% 1000 ML 1,000 ML IV SCH (19:45)
[2021-03-25] MEDS ORDERED: HYDROCODONE-CHLORPHEN ER SUSP PO PRN (20:41)
[2021-03-25] MEDS ORDERED: HUMALOG SQ PRN (20:41)
[2021-03-25] MEDS ORDERED: Zofran 4 MG/2 ML VIAL IV PRN (20:41)
[2021-03-25] MEDS ORDERED: TYLENOL EXTRA STRENGTH 500 MG PO PRN (20:41)
[2021-03-25] MEDS ORDERED: Lopressor 50 MG ONE (21:24)
[2021-03-25] MEDS: Vasotec 10 MG PO SCH (21:32)
[2021-03-25] MEDS: Pepcid 20 MG VIAL IV SCH (21:32)
[2021-03-25] MEDS: Lopressor 25MG Tab PO SCH (21:55)
[2021-03-25] MEDS ORDERED: clonazePAM PO SCH (22:00)
[2021-03-25] MEDS ORDERED: Zetia 10 MG PO SCH (22:00)
[2021-03-25] MEDS ORDERED: Mirapex 0.5 MG Tablet PO SCH (22:00)
[2021-03-25] MEDS ORDERED: Effexor XR 75 MG PO SCH (22:00)
[2021-03-26 04:45] LABS: Hematocrit 47.5 % (42-50); Hemoglobin 15.5 gm/dl (12.5-18.0); Mean Cell Volume 88.5 fl (78-100); Mean Corpuscular Hemoglobin 28.9 pg (26-32); Mean Corpuscular Hgb Concent. 32.6 g/dl (32-36); Mean Platelet Volume 10.8 fl (7.5-11.0); Platelet Count 211 K/mm3 (150-450); Red Blood Count 5.37 M/mm3 (4.1-5.6); Red Cell Distribution Width 14.3 % (11.5-14.0); White Blood Count 7.5 K/mm3 (4.0-10.5)
[2021-03-26 04:58] LABS: ALBUMIN 4.2 g/dL (3.5-5.0); ALKALINE PHOSPHATASE 70 U/L (38-126); ANION GAP 12.4 MEQ/L (5-15); BLOOD UREA NITROGEN 16 mg/dL (9-20); CHLORIDE 99 mmol/L (98-107); Calcium 9.3 mg/dL (8.4-10.2); Carbon Dioxide 29 mmol/L (22-30); Creatinine 1 0.64 mg/dL (0.66-1.25); EST GLOMERULAR FILTRATION RATE > 60.0 ML/MIN; Glucose 145 mg/dL (74-106); Potassium 4.3 mmol/L (3.5-5.1); SGOT/AST 54 U/L (17-59); SGPT/ALT 117 U/L (0-50); SODIUM 135 mmol/L (137-145); Total Protein 7.5 g/dL (6.3-8.2)
[2021-03-26] MEDS: VENTOLIN COMMON CANISTER IH SCH ×2 (07:25→10:35)
[2021-03-26] MEDS: Glucophage 850 MG PO SCH ×2 (07:25→07:46)
[2021-03-26 07:46] LABS: ANISOCYTOSIS 1+; ATYPICAL LYMPHS 1 %; Lymphocytes 26 % (24-44); Monocyte 1 % (0.0-12.0); Neutrophils 72 % (36.-66.); Platelet Estimate NORMAL (NORMAL); Total Cells Counted 100
[2021-03-26] MEDS: Lopressor 25MG Tab PO SCH (08:25)
[2021-03-26] MEDS: Pepcid 20 MG VIAL IV SCH ×2 (08:25→09:11)
[2021-03-26] MEDS: Vasotec 10 MG PO SCH (08:25)
--- NOTE | 2021-03-26 08:37 | XRAY ---
Indication: Short of breath. Positive Covid 19. Multiple contiguous axial images obtained through the chest using 100 cc Isovue 370 contrast and PE protocol. Comparison: None There is adequate opacification of the pulmonary arteries. However mild respiration artifact limits evaluation of the more distal lobar and segmental branches. No obvious central pulmonary embolus. Heart borderline enlarged with prominent epicardiac fat. Aorta is mildly arteriosclerotic without aneurysm/dissection. Tiny mediastinal and right hilar calcified nodes. No pathologic mediastinal/hilar lymphadenopathy. Small hiatal hernia. Lungs demonstrates mild diffuse bilateral peripheral patchy groundglass airspace opacities without consolidation or effusion. Incidental tiny right upper lobe calcified granulomas. Bony thorax intact with flowing osteophytes throughout the spine. Limited upper abdomen demonstrates a diffuse fatty liver, bilateral adrenal hypertrophy, and tiny hepatic/splenic calcified granulomas. Impression: 1. Pulmonary embolus evaluation limited by respiration artifact. No obvious central pulmonary embolus. 2. Diffuse bilateral peripheral patchy groundglass airspace opacities favoring Covid 19 pneumonia. 3. Incidental borderline cardiomegaly, small hiatal hernia, fatty liver, bilateral adrenal hypertrophy, chronic bony findings, and old granulomatous disease.
--- NOTE | 2021-03-26 09:07 | HP ---
ADMITTED: 03/25/2021 CHIEF COMPLAINT: Short of breath. HISTORY OF PRESENT ILLNESS: The patient is a 60 y/o white, obese male who was here last week and discharged 2 days ago after coming in with bilateral COVID-19 pneumonia. During his stay last week, he was not hypoxic and did fairly well. He has had severe coronary artery disease, congestive heart failure in the past, suffers from bad obesity and anxiety. He lives at home with his mother. I don't think he probably has ever worked. Denies any cough. Denies any chest pain tonight. States he is just more short of breath at rest. CURRENT MEDICATIONS: Presently not available. He is on many cardiac meds, large amounts of insulin. REVIEW OF SYSTEMS: HEENT: No problems hearing or seeing. CHEST: As above. CVS: History of heart failure. History of myocardial infarction in the distant past. PULMONARY: The patient does smoke a pack a day. Nonproductive cough. He did get 1 or 2 COVID-19 shots. He is not exactly sure how many. ABDOMEN: No nausea or vomiting. No diarrhea. EXTREMITIES: Has pain in his knees. SOCIAL HISTORY: Patient lives with his mother. Doesn't work. Doesn't drink. PHYSICAL EXAMINATION: The patient is a large white male. He is potato chips. Seems to be in no distress. HEENT: Pupils equal and reactive to light. NECK: Supple without adenopathy. CHEST: Clear. CVS: No murmurs or gallops. ABDOMEN: Obese. No masses or organomegaly. EXTREMITIES: Some chronic stasis changes. No edema. Good pulses. VITAL SIGNS: Pulse is 90, respirations are 24, BP 152/70, O2 saturation is 95% on room air. IMPRESSION: 1. PATIENT HAS HAD COVID-19 PNEUMONIA WHICH IS STABLE. 2. CORONARY ARTERY DISEASE. 3. DIABETES MELLITUS. 4. MORBID OBESITY. 5. GENERALIZED ANXIETY STATE. PLAN: At this time, we probably will not increase any or give him any COVID-19 medicines. He is past the time frame for that plus he has been vaccinated. Has no hypoxia, although he has changes of pneumonia. Will increase his anxiety medicine. Perhaps he might be stable to go home in the morning.
[2021-03-26] MEDS ORDERED: NEURONTIN 300 MG PO SCH (10:00)
[2021-03-26] MEDS ORDERED: PLAVIX 75 MG Tablet PO SCH (10:00)
[2021-03-26] MEDS ORDERED: clonazePAM PO SCH (10:00)
[2021-03-26] MEDS ORDERED: Lasix 40 MG PO SCH (10:00)
[2021-03-26] MEDS ORDERED: ARIPIPRAZOLE 15 MG PO SCH (10:00)
[2021-03-26] MEDS ORDERED: Abilify 10 MG PO SCH (10:00)
[2021-03-26] MEDS ORDERED: Klor Con 10 MEQ PO SCH (10:00)
[2021-03-26] MEDS ORDERED: NON-FORMULARY ITEM (Icosapent Ethyl [Vascepa] 1 GM Capsule) PO SCH (10:00)
[2021-03-26] MEDS ORDERED: ENOXAPARIN SODIUM SQ SCH (10:00)
[2021-03-26] MEDS ORDERED: ZOCOR 20MG PO SCH (10:00)
[2021-03-26] MEDS ORDERED: FISH OIL 1,000 MG CAPSULE PO SCH (10:00)
[2021-03-26] MEDS ORDERED: ECOTRIN 81 MG PO SCH (10:00)
[2021-03-26] MEDS ORDERED: NON-FORMULARY ITEM (Atorvastatin Calcium [Atorvastatin Calcium] 80 MG Tablet) PO SCH (10:00)
[2021-03-26] MEDS ORDERED: Pepcid 20 MG PO SCH (10:00)
[2021-03-26] MEDS ORDERED: Imdur 30 MG PO SCH (10:00)
[2021-03-26] MEDS ORDERED: Tricor 145 MG PO SCH (10:00)
[2021-03-26] MEDS ORDERED: HUMALOG SQ SCH (12:00)
[2021-03-26] MEDS ORDERED: PATIENT OWN MEDICATION SQ SCH ×2 (12:00→17:00)
[2021-03-26 12:38] VITALS: BP 134/60; PULSE 80; O2SAT 82
--- NOTE | 2021-03-26 13:26 | PCM.DS ---
Discharge Summary Date of Admission: 03/25/21 19:39 Admitting Physician: KEV HUERTA Primary Care Provider: LUISITO MONROE Allergies Allergies No Known Drug Allergies Allergy (Verified 03/25/21 20:44) Hospital Summary - Hospital Course Hospital Course: Chief Complaint Diagnosis COVID, SOB Allergies Allergy/AdvReac Type Severity Reaction Status Date / Time No Known Drug Allergies Allergy Verified 03/25/21 20:44 Vital Signs (Last 24 hours) Temp Pulse Resp BP Pulse Ox 03/26/21 12:00 97.5 F 80 24 134/60 82 L 03/26/21 10:35 91 H 20 90 L 03/26/21 10:00 80 23 92 L 03/26/21 08:00 97.6 F 80 24 135/63 91 L 03/26/21 07:55 23 03/26/21 07:25 83 23 90 L 03/26/21 06:00 23 03/26/21 05:49 89 14 92 L 03/26/21 03:52 97.9 F 82 21 134/65 91 L 03/26/21 02:00 25 H 03/26/21 01:47 73 18 90 L 03/26/21 00:00 18 03/25/21 23:36 97.8 F 77 17 117/56 94 L 03/25/21 22:00 74 20 94 L 03/25/21 20:00 97.8 F 101 H 29 H 141/63 95 03/25/21 19:45 95 03/25/21 19:42 97.8 F 101 H 29 H 141/63 95 03/25/21 19:24 95 03/25/21 16:48 90 26 H 164/74 95 03/25/21 16:47 94 L 03/25/21 15:50 97.6 F 105 H 28 H 180/77 95 Home Medications Medication Instructions Recorded Confirmed Last Taken Type Insulin Lispro 170 unit SQ DINNER 03/26/21 03/26/21 Unknown History Insulin Lispro [Humalog] 420 unit SQ LUNCH 03/26/21 03/26/21 Unknown History Current Medications Generic Name Dose Route Start Last Admin Trade Name Freq PRN Reason Stop Dose Admin Acetaminophen 500 - 1,000 mg 03/25/21 20:41 Acetaminophen 500 Mg Tablet PO 04/24/21 20:40 Q4H PRN PRN Temp > 100.4 Orally Albuterol Sulfate 4 puff 03/26/21 07:00 03/26/21 10:35 Albuterol Common Canister Inhaler IH 04/25/21 06:59 4 puff QIDRT NEEMA Administration Aripiprazole 15 mg 03/26/21 10:00 03/26/21 08:24 Aripiprazole 10 Mg Tablet PO 04/25/21 09:59 15 mg DAILY NEEMA Administration Aspirin 81 mg 03/26/21 10:00 03/26/21 08:25 Aspirin 81 Mg Tablet.Ec PO 04/25/21 09:59 81 mg DAILY NEEMA Administration Chlorphenir/Hydrocodone Polistirex 5 ml 03/25/21 20:41 Hydrocodone/Chlorphen P-Stirex 1 Ml Bita.Er.12h PO 04/24/21 20:40 [id number] PRN COUGH Clonazepam 1 mg 03/25/21 22:00 03/25/21 21:31 Clonazepam 0.5 Mg Tablet PO 04/24/21 21:59 1 mg HS NEEMA Administration Clonazepam 0.5 mg 03/26/21 10:00 03/26/21 08:24 Clonazepam 0.5 Mg Tablet PO 04/25/21 09:59 0.5 mg QAM NEEMA Administration Clopidogrel Bisulfate 75 mg 03/26/21 10:00 03/26/21 08:23 Clopidogrel Bisulfate 75 Mg Tablet PO 04/25/21 09:59 75 mg DAILY NEEMA Administration Ezetimibe 10 mg 03/25/21 22:00 03/25/21 21:32 Ezetimibe 10 Mg Tab PO 04/24/21 21:59 10 mg HS NEEMA Administration Enalapril Maleate 10 mg 03/25/21 22:00 03/26/21 08:25 Enalapril Maleate 10 Mg 10 Mg Tablet PO 04/24/21 21:59 10 mg BID NEEMA Administration Enoxaparin Sodium 40 mg 03/26/21 10:00 03/26/21 08:26 Enoxaparin Sodium 40 Mg/0.4 Ml Syringe SQ 04/25/21 09:59 40 mg DAILY NEEMA Administration Famotidine 20 mg 03/26/21 10:00 03/26/21 10:26 Famotidine 20 Mg Tablet PO 04/25/21 09:59 20 mg BID NEEMA Administration Fenofibrate 145 mg 03/26/21 10:00 03/26/21 08:23 Fenofibrate,Micronized 145 Mg Tablet PO 04/25/21 09:59 145 mg DAILY NEEMA Administration Fish Oil 2,000 mg 03/26/21 10:00 03/26/21 08:25 [place]-3 Fatty Acids/Fish Oil 1000 Mg Capsule PO 04/25/21 09:59 2,000 mg BID NEEMA Administration Furosemide 40 mg 03/26/21 10:00 03/26/21 08:25 Furosemide 40 Mg Tablet PO 04/25/21 09:59 40 mg DAILY NEEMA Administration Gabapentin 300 mg 03/26/21 10:00 03/26/21 08:23 Gabapentin 300 Mg Capsule PO 04/25/21 09:59 300 mg DAILY NEEMA Administration Sodium Chloride 1,000 mls @ 0 mls/hr 03/25/21 19:45 03/25/21 21:31 Sodium Chloride 0.9% 1000 Ml IV 04/24/21 19:44 30 mls/hr .Q0M NEEMA Administration KVO Insulin Human Lispro 0 unit 03/25/21 20:41 Insulin Lispro 1 Unit SQ 04/24/21 20:40 UD PRN HYPERGLYCEMIA Isosorbide Mononitrate 30 mg 03/26/21 10:00 03/26/21 08:24 Isosorbide Mononitrate 30 Mg Tab PO 04/25/21 09:59 30 mg DAILY NEEMA Administration Metformin HCl 850 mg 03/26/21 08:00 03/26/21 07:46 Metformin Hcl 850 Mg Tablet PO 04/25/21 07:59 Not Given BIDWM NEEMA Metoprolol Tartrate 25 mg 03/25/21 22:00 03/26/21 08:25 Metoprolol Tartrate 25 Mg Tab PO 04/24/21 21:59 25 mg BID NEEMA Administration Ondansetron HCl 4 mg 03/25/21 20:41 Ondansetron Hcl 4 Mg/2 Ml Vial IV 04/24/21 20:40 Q6H PRN PRN NAUSEA/VOMITING Humulin R U-500 420 each 03/26/21 12:00 03/26/21 12:24 Insulin SQ 04/25/21 11:59 420 each LUNCH NEEMA Administration Humulin R U-500 400 each 03/27/21 08:00 Insulin SQ 04/26/21 07:59 BREAKFAST [facility] Humulin R U-500 170 each 03/26/21 17:00 Insulin SQ 04/25/21 16:59 DINNER [facility] Potassium Chloride 10 meq 03/26/21 10:00 03/26/21 08:23 Potassium Chloride 10 Meq Tablet PO 04/25/21 09:59 10 meq DAILY NEEMA Administration Pramipexole Dihydrochloride 0.25 mg 03/25/21 22:00 03/25/21 21:32 Pramipexole Di-Hcl 0.5 Mg Tab PO 04/24/21 21:59 0.25 mg HS NEEMA Administration Simvastatin 40 mg 03/26/21 10:00 03/26/21 08:47 Simvastatin 20 Mg Tablet PO 04/25/21 09:59 40 mg DAILY NEEMA Administration Venlafaxine HCl 150 mg 03/25/21 22:00 03/25/21 21:31 Venlafaxine Hcl 75 Mg Extended Release Capsule PO 04/24/21 21:59 150 mg HS NEEMA Administration Discontinued Medications Generic Name Dose Route Start Last Admin Trade Name Freq PRN Reason Stop Dose Admin Acetaminophen 650 mg 03/25/21 19:45 Acetaminophen 325 Mg Tablet PO 04/24/21 19:44 Q4H PRN PRN PAIN AND/OR FEVER Albuterol Sulfate 4 puff 03/25/21 18:12 Albuterol Common Canister Inhaler 04/24/21 18:11 Q4H PRN PRN SHORTNESS OF BREATH/WHEEZING Albuterol Sulfate 4 puff 03/25/21 19:45 Albuterol Common Canister Inhaler 04/24/21 19:44 Q4H PRN PRN SHORTNESS OF BREATH/WHEEZING Dexamethasone Sodium Phosphate 8 mg 03/25/21 16:23 03/25/21 16:41 Dexamethasone Sod Phosphate 10 Mg/Ml IV 03/25/21 16:24 8 mg STAT ONE Administration Dexamethasone Sodium Phosphate Confirm 03/25/21 16:38 Dexamethasone Sod Phosphate 10 Mg/Ml Administered 03/25/21 16:39 Dose 10 mg .ROUTE .STK-MED ONE Enoxaparin Sodium 40 mg 03/25/21 18:04 03/25/21 18:08 Enoxaparin Sodium 40 Mg/0.4 Ml Syringe SQ 03/25/21 18:05 40 mg STAT ONE Administration Enoxaparin Sodium Confirm 03/25/21 18:06 Enoxaparin Sodium 80 Mg/0.8 Ml Syringe Administered 03/25/21 18:07 Dose 80 mg SQ .STK-MED ONE Famotidine 20 mg 03/25/21 22:00 03/26/21 09:11 Famotidine 20 Mg/1 Vial IV 04/24/21 21:59 Not Given Q12HT NEEMA Remdesivir 200 mg/ Sodium 250 mls @ 125 mls/hr 03/25/21 16:23 03/25/21 16:40 Chloride IV 03/25/21 18:22 Not Given ONCE ONE Metoprolol Tartrate Confirm 03/25/21 21:24 Metoprolol Tartrate 50 Mg Tablet Administered 03/25/21 21:25 Dose 50 mg .ROUTE .STK-MED ONE Intake & Output (Last 24 hours) 03/24/21 03/25/21 03/26/21 03/27/21 11:59 11:59 11:59 11:59 Intake Total 600 240 Balance 600 240 Weight 106.7 kg Microbiology Results (Last 24 hours) 03/25/21 16:48 Blood Blood Culture Gram Stain - Pending 03/25/21 16:48 Blood Blood Culture - Pending 03/25/21 16:10 Blood Blood Culture Gram Stain - Pending 03/25/21 16:10 Blood Blood Culture - Pending Laboratory Results (Last 24 hours) 03/26/21 03/26/21 03/26/21 07:37 04:40 04:40 WBC RBC Hgb Hct MCV MCH MCHC RDW Plt Count MPV Segmented Neutrophils Band Neutrophils Lymphocytes (Manual) Monocytes (Manual) Eosinophils (Manual) Atypical Lymphocytes Platelet Estimate RBC Morphology Anisocytosis D-Dimer 354 Sodium 135 L Potassium 4.3 Chloride 99 Carbon Dioxide 29 Anion Gap 12.4 BUN 16 Creatinine 0.64 L Estimated GFR > 60.0 Glucose 145 H POC Glucometer 149 H Calcium 9.3 Total Bilirubin 0.50 AST 54 ALT 117 H Alkaline Phosphatase 70 Troponin I Serum Total Protein 7.5 Albumin 4.2 03/26/21 03/26/21 03/26/21 04:40 04:40 01:35 WBC 7.5 RBC 5.37 Hgb 15.5 Hct 47.5 MCV 88.5 MCH 28.9 MCHC 32.6 RDW 14.3 H Plt Count 211 MPV 10.8 Segmented Neutrophils 72 H Band Neutrophils Lymphocytes (Manual) 26 Monocytes (Manual) 1 Eosinophils (Manual) Atypical Lymphocytes 1 Platelet Estimate NORMAL RBC Morphology ABNORMAL Anisocytosis 1+ D-Dimer Sodium Potassium Chloride Carbon Dioxide Anion Gap BUN Creatinine Estimated GFR Glucose POC Glucometer Calcium Total Bilirubin AST ALT Alkaline Phosphatase Troponin I 0.019 0.020 Serum Total Protein Albumin 03/25/21 03/25/21 03/25/21 22:30 19:35 16:10 WBC RBC Hgb Hct MCV MCH MCHC RDW Plt Count MPV Segmented Neutrophils Band Neutrophils Lymphocytes (Manual) Monocytes (Manual) Eosinophils (Manual) Atypical Lymphocytes Platelet Estimate RBC Morphology Anisocytosis D-Dimer Sodium Potassium Chloride Carbon Dioxide Anion Gap BUN Creatinine Estimated GFR Glucose POC Glucometer Calcium Total Bilirubin AST ALT Alkaline Phosphatase Troponin I 0.019 0.028 0.017 Serum Total Protein Albumin 03/25/21 03/25/21 16:10 16:10 WBC 6.7 RBC 5.41 Hgb 16.0 Hct 48.0 MCV 88.7 MCH 29.6 MCHC 33.3 RDW 14.4 H Plt Count 204 MPV 11.1 H Segmented Neutrophils 66 Band Neutrophils 1 Lymphocytes (Manual) 27 Monocytes (Manual) 5 Eosinophils (Manual) 1 Atypical Lymphocytes Platelet Estimate NORMAL RBC Morphology NORMAL Anisocytosis D-Dimer Sodium 139 Potassium 4.1 Chloride 101 Carbon Dioxide 27 Anion Gap 14.9 BUN 19 Creatinine 0.66 Estimated GFR > 60.0 Glucose 191 H POC Glucometer Calcium 9.5 Total Bilirubin 0.60 AST 94 H ALT 136 H Alkaline Phosphatase 99 Troponin I Serum Total Protein 7.1 Albumin 4.1 Orders (Last 24 hours) Category Date Time Status Up Ad Mary ROUTINE Activity 03/25/21 20:43 Active Radiator Fitter ROUTINE Care 03/25/21 19:45 Active Radiator Fitter STAT Care 03/25/21 16:22 Completed Code Status Order ROUTINE Care 03/25/21 20:42 Active Elevate HOB ROUTINE Care 03/25/21 19:45 Active IV Care Q6H Care 03/25/21 20:42 Active IV Insertion STAT Care 03/25/21 16:22 Completed Isolation, Initiate & Maintain Q6H Care 03/25/21 19:45 Active Miscellaneous Nursing Order ROUTINE Care 03/26/21 08:00 Active Neuro Checks Q4H Care 03/25/21 19:[address] in Observation ROUTINE Care 03/25/21 19:45 Active Pulse Oximetry (ED) STAT Care 03/25/21 16:22 Completed Telemetry q4h Care 03/25/21 19:45 Active Vital Signs Q4H Care 03/25/21 19:45 Completed Cardio-Pulmonary Rehab .as ordered Cons 03/25/21 20:30 Active Nutritional Admission Screen ONCE Diet 03/25/21 20:30 Active Discharge Routine Discharge 03/26/21 Ordered Discharge/Telephone Order Routine Discharge 03/26/21 Active CHEST 1 VIEW (PORTABLE) Stat Exams 03/25/21 16:22 Completed CHEST WITH CONTRAST [CT] Stat Exams 03/25/21 18:10 Completed BLOOD CULTURE Stat Lab 03/25/21 16:48 Received CBC DAILY Lab 03/27/21 05:00 Ordered CBC DAILY Lab 03/28/21 05:00 Ordered CBC DAILY Lab 03/29/21 05:00 Ordered CBC DAILY Lab 03/30/21 05:00 Ordered CBC DAILY Lab 03/31/21 05:00 Ordered CBC DAILY Lab 04/01/21 05:00 Ordered CBC DAILY Lab 04/02/21 05:00 Ordered CBC DAILY Lab 04/03/21 05:00 Ordered CBC DAILY Lab 04/04/21 05:00 Ordered CBC W DIFF AM.LAB Lab 03/26/21 04:40 Completed CBC W DIFF Stat Lab 03/25/21 16:10 Completed CMP AM.LAB Lab 03/26/21 04:40 Completed CMP DAILY Lab 03/27/21 05:00 Ordered CMP DAILY Lab 03/28/21 05:00 Ordered CMP DAILY Lab 03/29/21 05:00 Ordered CMP DAILY Lab 03/30/21 05:00 Ordered CMP DAILY Lab 03/31/21 05:00 Ordered CMP DAILY Lab 04/01/21 05:00 Ordered CMP DAILY Lab 04/02/21 05:00 Ordered CMP DAILY Lab 04/03/21 05:00 Ordered CMP DAILY Lab 04/04/21 05:00 Ordered CMP Stat Lab 03/25/21 16:10 Completed D-DIMER QUANTITATIVE DAILY Lab 03/26/21 04:40 Completed D-DIMER QUANTITATIVE DAILY Lab 03/27/21 05:00 Ordered D-DIMER QUANTITATIVE DAILY Lab 03/28/21 05:00 Ordered D-DIMER QUANTITATIVE DAILY Lab 03/29/21 05:00 Ordered D-DIMER QUANTITATIVE DAILY Lab 03/30/21 05:00 Ordered D-DIMER QUANTITATIVE DAILY Lab 03/31/21 05:00 Ordered D-DIMER QUANTITATIVE DAILY Lab 04/01/21 05:00 Ordered D-DIMER QUANTITATIVE DAILY Lab 04/02/21 05:00 Ordered D-DIMER QUANTITATIVE DAILY Lab 04/03/21 05:00 Ordered D-DIMER QUANTITATIVE DAILY Lab 04/04/21 05:00 Ordered Manual Differential NC Routine Lab 03/26/21 04:40 Completed Manual Differential NC Stat Lab 03/25/21 16:10 Completed POCT GLUCOSE Stat Lab 03/26/21 07:37 Completed TROPONIN Q3H Lab 03/25/21 16:10 Completed TROPONIN Q3H Lab 03/25/21 19:35 Completed TROPONIN Q3H Lab 03/25/21 22:30 Completed TROPONIN Q3H Lab 03/26/21 01:35 Completed TROPONIN Q3H Lab 03/26/21 04:40 Completed Acetaminophen 325 mg [Tylenol 325 mg] Med 03/25/21 19:45 Discontinued 650 mg PO Q4H PRN PRN Acetaminophen 500 mg [Tylenol Extra Strength 500 mg* Med 03/25/21 20:41 Active ] 500 - 1,000 mg PO Q4H PRN PRN Albuterol Common Canister [Ventolin Common Canister* Med 03/25/21 18:12 Discontinued ] 4 puff IH Q4H PRN PRN Albuterol Common Canister [Ventolin Common Canister* Med 03/25/21 19:45 Discontinued ] 4 puff IH Q4H PRN PRN Albuterol Common Canister [Ventolin Common Canister* Med 03/26/21 07:00 Active ] 4 puff IH QIDRT Aripiprazole 10 mg [Abilify 10 MG] Med 03/26/21 10:00 Active 15 mg PO DAILY Aspirin EC 81 mg [Ecotrin 81 mg] Med 03/26/21 10:00 Active 81 mg PO DAILY Clopidogrel Bisulfate 75 mg [PLAVIX 75 MG Tablet] Med 03/26/21 10:00 Active 75 mg PO DAILY Dexamethasone Sod Phosphate [Decadron 10Mg Inj.] Med 03/25/21 16:38 Discontinued 10 mg .ROUTE .STK-MED ONE Dexamethasone Sod Phosphate [Decadron 10Mg Inj.] Med 03/25/21 16:23 Discontinued 8 mg IV STAT ONE Enalapril Maleate 10 mg [Vasotec 10 MG] Med 03/25/21 22:00 Active 10 mg PO BID Enoxaparin Sodium [Enoxaparin Sodium] Med 03/26/21 10:00 Active 40 mg SQ DAILY Enoxaparin Sodium [Enoxaparin Sodium] Med 03/25/21 18:04 Discontinued 40 mg SQ STAT ONE Enoxaparin Sodium [Enoxaparin Sodium] Med 03/25/21 18:06 Discontinued 80 mg SQ .STK-MED ONE Ezetimibe 10 mg [Zetia 10 MG] Med 03/25/21 22:00 Active 10 mg PO HS Famotidine 20 mg Vial [Pepcid 20 MG VIAL] Med 03/25/21 22:00 Disconti nued 20 mg IV Q12HT Famotidine 20 mg [Pepcid 20 MG] Med 03/26/21 10:00 Active 20 mg PO BID Fenofibrate,Micronized 145 mg* [Tricor 145 MG] Med 03/26/21 10:00 Active 145 mg PO DAILY Furosemide 40 mg [Lasix 40 MG] Med 03/26/21 10:00 Active 40 mg PO DAILY Gabapentin 300 mg [Neurontin 300 mg] Med 03/26/21 10:00 Active 300 mg PO DAILY Hydrocodone/Chlorphen P-Stirex [Hydrocodone-Chlorphen Med 03/25/21 20:41 Active ER Susp] 5 ml PO [id number] PRN Insulin Lispro [Humalog] Med 03/25/21 20:41 Active See Dose Instructions SQ UD PRN Isosorbide Mononitrate 30 mg [Imdur 30 MG] Med 03/26/21 10:00 Active 30 mg PO DAILY Metformin HCl 850 mg [Glucophage 850 MG] Med 03/26/21 08:00 Hold 850 mg PO BIDWM Metoprolol Tartrate 25 mg [Lopressor 25MG Tab] Med 03/25/21 22:00 Active 25 mg PO BID Metoprolol Tartrate 50 mg [Lopressor 50 MG] Med 03/25/21 21:24 Discontinued 50 mg .ROUTE .STK-MED ONE NaCl 0.9% 1000 ml [Sodium Chloride 0.9% 1000 ML] 1,000 Med 03/25/21 19:45 A ctive ml IV KVO [place]-3 Fatty Acids/Fish Oil [Fish Oil 1,000 mg Med 03/26/21 10:00 Active Capsule] 2,000 mg PO BID Ondansetron HCl 4 mg/2 ml [Zofran 4 MG/2 ML VIAL] Med 03/25/21 20:41 Active 4 mg IV Q6H PRN PRN Patient Own Med [Patient Own Medication] Med 03/26/21 17:00 Active 170 each SQ DINNER Patient Own Med [Patient Own Medication] Med 03/27/21 08:00 Active 400 each SQ BREAKFAST Patient Own Med [Patient Own Medication] Med 03/26/21 12:00 Active 420 each SQ LUNCH Potassium Chloride 10 Meq Tab* [Klor Con 10 MEQ] Med 03/26/21 10:00 Active 10 meq PO DAILY Pramipexole Di-HCl 0.5 mg [Mirapex 0.5 MG Tablet] Med 03/25/21 22:00 Active 0.25 mg PO HS Remdesivir 200 mg Med 03/25/21 16:23 Discontinued NaCl 0.9% 250 ml [Sodium Chloride 0.9% 250 ML] 250 ml IV ONCE Simvastatin 20Mg [Zocor 20Mg] Med 03/26/21 10:00 Active 40 mg PO DAILY Venlafaxine HCl ER 75 mg [Effexor XR 75 MG] Med 03/25/21 22:00 Active 150 mg PO HS clonazePAM Med 03/26/21 10:00 Active 0.5 mg PO QAM clonazePAM Med 03/25/21 22:00 Active 1 mg PO HS Oxygen Nasal Cannula 2 lpm RT 03/26/21 11:03 Active Pulse Oximetry .continuos RT 03/25/21 22:00 Active RT Screen per Nursing Assess ONCE RT 03/25/21 20:30 Completed Respiratory MDI BID RT 03/26/21 07:00 Completed Respiratory Therapy Consult ROUTINE RT 03/25/21 19:45 Active Smoking Cessation Education ONCE RT 03/25/21 20:30 Completed Patient Care Notes (Last 24 hours) 03/26/21 13:22 Nursing Note by Emma Monroe PATIENT LEFT AT 1315. ESCORTED TO THE VEHICLE WITH STAFF Initialized on 03/26/21 13:22 - END OF NOTE 03/26/21 10:10 Nursing Note by Leticia Salguero Noted pt had been sleeping on RA :84%. Pt refused to wear BI-Pap- C-Pap while sleeping. O2 2L per N/C applied while sleeping. Initialized on 03/26/21 10:10 - END OF NOTE 03/26/21 09:31 Respiratory Note by Letty Ashby ASKED PT ABOUT HIS CPAP. PT STATES HE DOESN'T WANT TO WEAR CPAP WHILE HERE. I ASKED ABOUT FAMILY BRINGING HIS IN. HIS REPLY WAS HE DIDN'T WANT TO MESS WITH THE CPAP AT ALL. Initialized on 03/26/21 09:31 - END OF NOTE - Vitals & Intake/Output Vital Signs: Vital Signs Temperature 97.5 F 03/26/21 12:00 Pulse Rate 80 03/26/21 12:00 Respiratory Rate 24 03/26/21 12:00 Blood Pressure 134/60 03/26/21 12:00 O2 Sat by Pulse Oximetry 82 L 03/26/21 12:00 Intake & Output: Intake & Output 03/24/21 03/25/21 03/26/21 03/27/21 11:59 11:59 11:59 11:59 Intake Total 600 240 Balance 600 240 Weight 106.7 kg - Lab Result Diagrams: 03/26/21 04:40 03/26/21 04:40 Lab Results-Last 24 Hrs: Lab Results-Last 24 Hours 03/25/21 03/25/21 03/25/21 Range/Units 16:10 16:10 16:10 WBC 6.7 (4.0-10.5) K/mm3 RBC 5.41 (4.1-5.6) M/mm3 Hgb 16.0 (12.5-18.0) gm/dl Hct 48.0 (42-50) % MCV 88.7 (78-100) fl MCH 29.6 (26-32) pg MCHC 33.3 (32-36) g/dl RDW 14.4 H (11.5-14.0) % Plt Count 204 (150-450) K/mm3 MPV 11.1 H (7.5-11.0) fl Segmented Neutrophils 66 (36.-66.) % Band Neutrophils 1 (0.0-2.0) % Lymphocytes (Manual) 27 (24-44) % Monocytes (Manual) 5 (0.0-12.0) % Eosinophils (Manual) 1 (0.00-3.0) % Atypical Lymphocytes % Platelet Estimate NORMAL (NORMAL) RBC Morphology NORMAL Anisocytosis D-Dimer (215-500) ng/mL Sodium 139 (137-145) mmol/L Potassium 4.1 (3.5-5.1) mmol/L Chloride 101 (98-107) mmol/L Carbon Dioxide 27 (22-30) mmol/L Anion Gap 14.9 (5-15) MEQ/L BUN 19 (9-20) mg/dL Creatinine 0.66 (0.66-1.25) mg/dL Estimated GFR > 60.0 ML/MIN Glucose 191 H (74-106) mg/dL POC Glucometer (74 to 106) mg/dL Calcium 9.5 (8.4-10.2) mg/dL Total Bilirubin 0.60 (0.2-1.3) mg/dL AST 94 H (17-59) U/L ALT 136 H (0-50) U/L Alkaline Phosphatase 99 (38-126) U/L Troponin I 0.017 (0.000-0.034) ng/mL Serum Total Protein 7.1 (6.3-8.2) g/dL Albumin 4.1 (3.5-5.0) g/dL 03/25/21 03/25/21 03/26/21 Range/Units 19:35 22:30 01:35 WBC (4.0-10.5) K/mm3 RBC (4.1-5.6) M/mm3 Hgb (12.5-18.0) gm/dl Hct (42-50) % MCV (78-100) fl MCH (26-32) pg MCHC (32-36) g/dl RDW (11.5-14.0) % Plt Count (150-450) K/mm3 MPV (7.5-11.0) fl Segmented Neutrophils (36.-66.) % Band Neutrophils (0.0-2.0) % Lymphocytes (Manual) (24-44) % Monocytes (Manual) (0.0-12.0) % Eosinophils (Manual) (0.00-3.0) % Atypical Lymphocytes % Platelet Estimate (NORMAL) RBC Morphology Anisocytosis D-Dimer (215-500) ng/mL Sodium (137-145) mmol/L Potassium (3.5-5.1) mmol/L Chloride (98-107) mmol/L Carbon Dioxide (22-30) mmol/L Anion Gap (5-15) MEQ/L BUN (9-20) mg/dL Creatinine (0.66-1.25) mg/dL Estimated GFR ML/MIN Glucose (74-106) mg/dL POC Glucometer (74 to 106) mg/dL Calcium (8.4-10.2) mg/dL Total Bilirubin (0.2-1.3) mg/dL AST (17-59) U/L ALT (0-50) U/L Alkaline Phosphatase (38-126) U/L Troponin I 0.028 0.019 0.020 (0.000-0.034) ng/mL Serum Total Protein (6.3-8.2) g/dL Albumin (3.5-5.0) g/dL 03/26/21 03/26/21 03/26/21 Range/Units 04:40 04:40 04:40 WBC 7.5 (4.0-10.5) K/mm3 RBC 5.37 (4.1-5.6) M/mm3 Hgb 15.5 (12.5-18.0) gm/dl Hct 47.5 (42-50) % MCV 88.5 (78-100) fl MCH 28.9 (26-32) pg MCHC 32.6 (32-36) g/dl RDW 14.3 H (11.5-14.0) % Plt Count 211 (150-450) K/mm3 MPV 10.8 (7.5-11.0) fl Segmented Neutrophils 72 H (36.-66.) % Band Neutrophils (0.0-2.0) % Lymphocytes (Manual) 26 (24-44) % Monocytes (Manual) 1 (0.0-12.0) % Eosinophils (Manual) (0.00-3.0) % Atypical Lymphocytes 1 % Platelet Estimate NORMAL (NORMAL) RBC Morphology ABNORMAL Anisocytosis 1+ D-Dimer (215-500) ng/mL Sodium 135 L (137-145) mmol/L Potassium 4.3 (3.5-5.1) mmol/L Chloride 99 (98-107) mmol/L Carbon Dioxide 29 (22-30) mmol/L Anion Gap 12.4 (5-15) MEQ/L BUN 16 (9-20) mg/dL Creatinine 0.64 L (0.66-1.25) mg/dL Estimated GFR > 60.0 ML/MIN Glucose 145 H (74-106) mg/dL POC Glucometer (74 to 106) mg/dL Calcium 9.3 (8.4-10.2) mg/dL Total Bilirubin 0.50 (0.2-1.3) mg/dL AST 54 (17-59) U/L ALT 117 H (0-50) U/L Alkaline Phosphatase 70 (38-126) U/L Troponin I 0.019 (0.000-0.034) ng/mL Serum Total Protein 7.5 (6.3-8.2) g/dL Albumin 4.2 (3.5-5.0) g/dL 03/26/21 03/26/21 Range/Units 04:40 07:37 WBC (4.0-10.5) K/mm3 RBC (4.1-5.6) M/mm3 Hgb (12.5-18.0) gm/dl Hct (42-50) % MCV (78-100) fl MCH (26-32) pg MCHC (32-36) g/dl RDW (11.5-14.0) % Plt Count (150-450) K/mm3 MPV (7.5-11.0) fl Segmented Neutrophils (36.-66.) % Band Neutrophils (0.0-2.0) % Lymphocytes (Manual) (24-44) % Monocytes (Manual) (0.0-12.0) % Eosinophils (Manual) (0.00-3.0) % Atypical Lymphocytes % Platelet Estimate (NORMAL) RBC Morphology Anisocytosis D-Dimer 354 (215-500) ng/mL Sodium (137-145) mmol/L Potassium (3.5-5.1) mmol/L Chloride (98-107) mmol/L Carbon Dioxide (22-30) mmol/L Anion Gap (5-15) MEQ/L BUN (9-20) mg/dL Creatinine (0.66-1.25) mg/dL Estimated GFR ML/MIN Glucose (74-106) mg/dL POC Glucometer 149 H (74 to 106) mg/dL Calcium (8.4-10.2) mg/dL Total Bilirubin (0.2-1.3) mg/dL AST (17-59) U/L ALT (0-50) U/L Alkaline Phosphatase (38-126) U/L Troponin I (0.000-0.034) ng/mL Serum Total Protein (6.3-8.2) g/dL Albumin (3.5-5.0) g/dL - Radiology Exams Ordered Rad Exams-Entire Visit: Radiology Procedures Category Date Time Status CHEST 1 VIEW (PORTABLE) Stat Exams 03/25/21 16:22 Completed CHEST WITH CONTRAST [CT] Stat Exams 03/25/21 18:10 Completed - Procedures and Test Procedures and Tests throughout Hospitalization: Therapy Orders & Screens 03/25/21 19:45 Respiratory Therapy Consult ROUTINE Comment: Reason For Exam: 03/25/21 20:30 RT Screen per Nursing Assess ONCE Comment: Protocol Order Physician Instructions: Greater than 3 points order RT Admission Screen Reason For Exam: Triggered on Admission Diagnosis: COVID, SOB Diagnosis: COVID, SOB Pneumonia: No Home O2: No Asthma: No CHF: Yes Home CPAP/BIPAP: Yes Home Nebs/MDI: No Total Points: 8 Smoking Cessation Education ONCE Comment: Diagnosis: COVID, SOB Smoking Status: Current every day smoker How long have you smoked: years Do you dip or chew tobacco: No 03/26/21 07:00 Respiratory MDI BID Comment: Diagnosis: COVID, SOB 03/26/21 11:03 Oxygen Nasal Cannula 2 lpm Comment: Diagnosis: COVID, SOB Discharge Exam General Appearance: no apparent distress, alert Neurologic Exam: alert, oriented x 3, cooperative, normal mood/affect, nml cerebellar function, sensation nml, No motor deficits Eye Exam: PERRL, EOMI, eyes nml inspection Ears, Nose, Throat Exam: normal ENT inspection, pharynx normal, moist mucous membranes Neck Exam: normal inspection, non-tender, supple, full range of motion Respiratory Exam: normal breath sounds, lungs clear, No respiratory distress Cardiovascular Exam: regular rate/rhythm, normal heart sounds Gastrointestinal/Abdomen Exam: soft, No tenderness, No mass Male Genitalia Exam: deferred Rectal Exam: deferred Back Exam: normal inspection, normal range of motion, No CVA tenderness, No vertebral tenderness Extremity Exam: normal inspection, normal range of motion Skin Exam: normal color, warm, dry Final Diagnosis/Problem List - Final Discharge Diagnosis/Problem (1) Pneumonia due to COVID-19 virus Current Visit: No Status: Resolved Code(s): U07.1 - COVID-19; J12.82 - PNEUMONIA DUE TO CORONAVIRUS DISEASE 2019 (2) COVID-19 Current Visit: Yes Status: Resolved Code(s): U07.1 - COVID-19 (3) Respiratory distress Current Visit: Yes Status: Resolved Code(s): R06.03 - ACUTE RESPIRATORY DISTRESS - Discharge Discharge Date: 03/26/21 Disposition: Home, Self-Care Condition: Stable Prescriptions: No Action Fenofibrate,Micronized 145 mg* [Tricor 145 MG] 145 mg PO DAILY Pramipexole Di-HCl [Pramipexole Dihydrochloride] 0.25 mg PO HS Isosorbide Mononitrate 30 mg [Imdur 30 MG] 30 mg PO DAILY Clopidogrel Bisulfate 75 mg [PLAVIX 75 MG Tablet] 75 mg PO DAILY ARIPiprazole [Aripiprazole] 15 mg PO DAILY Enalapril Maleate 10 mg [Vasotec 10 MG] 10 mg PO BID Insulin Lispro [Humalog] 400 unit SQ 0730 Aspirin EC 81 mg [Ecotrin 81 mg] 81 mg PO DAILY Alendronate Sodium 70 mg [Fosamax 70 MG] 70 mg PO WEEKLY Metoprolol Tartrate 25 mg [Lopressor 25MG Tab] 25 mg PO BID Atorvastatin Calcium 80 mg PO DAILY Furosemide 40 mg [Lasix 40 MG] 40 mg PO DAILY Potassium Chloride 10 meq PO DAILY Gabapentin 300 mg [Neurontin 300 mg] 300 mg PO DAILY clonazePAM 0.5 mg PO HS Icosapent Ethyl [Vascepa] 2 gm PO BID Venlafaxine HCl [Venlafaxine HCl ER] 150 mg PO HS Ezetimibe 10 mg [Zetia 10 MG] 10 mg PO HS predniSONE [Prednisone] 20 mg PO DAILY #30 tablet Insulin Lispro [Humalog] 420 unit SQ LUNCH Insulin Lispro 170 unit SQ DINNER Instructions: Coronavirus Disease 2019 (COVID-19) (DC), Pulse Oximetry Follow up with: LUISITO MONROE [Primary Care Provider] - 04/09/21 3:00 pm Forms: Discharge Instructions
[2021-03-26] MEDS ORDERED: HUMULIN R SQ SCH (17:00)
[2021-03-27] MEDS ORDERED: HUMALOG SQ SCH (08:00)
[2021-03-27] MEDS ORDERED: PATIENT OWN MEDICATION SQ SCH (08:00)
== END 2021-03-26 13:15 | disposition home or self-care (01) ==
LOC: ED 15:45 → INTOOBSV 19:39 → MED SURG 19:39
PROVIDERS: ADMIT Family Medicine; ATTEND Family Medicine
DX: U07.1 COVID-19 (principal); J12.82 Pneumonia due to coronavirus disease 2019; R06.03 Acute respiratory distress; I25.10 Atherosclerotic heart disease of native coronary artery without angina pectoris; E11.9 Type 2 diabetes mellitus without complications; I50.9 Heart failure, unspecified; I11.0 Hypertensive heart disease with heart failure; E66.9 Obesity, unspecified; F41.9 Anxiety disorder, unspecified; Z72.0 Tobacco use; Z79.899 Other long term (current) drug therapy
CPT/HCPCS: 36000; 36415; 71045; 71260; 80053; 82947; 84484; 85025; 85379; 87040; 93041; 93268; 94640; 94760; 94762; 96372; 96374; 99285; G0378; J1100; J1650; A9270-GY

== ENCOUNTER 2021-04-30 08:31 | Emergency (ER) | payer MEDICARE ==
[2021-04-30 08:43] VITALS: BP 143/72
[2021-04-30 09:08] LABS: Basophil (Absolute #) 0.16 (0-0.4); Eosinophil % 1.4 % (0.00-5.0); Eosinophil (Absolute #) 0.11 (0-0.5); Hematocrit 48.4 % (42-50); Hemoglobin 16.1 gm/dl (12.5-18.0); Lymphocyte (Absolute #) 2.12 (1.0-4.6); Lymphocytes % 27.4 % (24.0-44.0); Mean Cell Volume 89.5 fl (78-100); Mean Corpuscular Hemoglobin 29.8 pg (26-32); Mean Corpuscular Hgb Concent. 33.3 g/dl (32-36); Monocyte (Absolute #) 0.56 (0.0-1.3); Monocytes % 7.2 % (0.0-12.0); Neutrophil % 61.9 % (36.0-66.0); Platelet Count 193 K/mm3 (150-450); Red Blood Count 5.41 M/mm3 (4.1-5.6); Red Cell Distribution Width 14.6 % (11.5-14.0); White Blood Count 7.8 K/mm3 (4.0-10.5)
--- NOTE | 2021-04-30 09:32 | ERPHSYRPT ---
- History of Present Illness Source: patient Exam Limitations: other (Poor historian) Patient Subjective Stated Complaint: throat discomfort, occasionally choking on saliva Triage Nursing Assessment: pt to ED c/o throat discomfort x 2-3 weeks. reports he has seen Dr. Rowley for this issue and was given "some pills and a nasal spray" which the pt has been using but is not feeling relief. denies throat pain at this time. some throat redness/irritation noted on assessment. no diff swallowing, talking, breathing noted. pt does report that he has some intermittent R ear trouble which causes pain and dizziness occasionally. Physician History: [address] x 3 weeks. Pt has seen Dr. Narvaez and was treated w an unknown meds. He states that he has somewhat trouble swallowing but does appear to have a great airway at the present in NAD. He denies fever/Nausea/Vomiting/Diarrhea/cough but does have mild coryza. Pt denies chest pain/dyspnea but does have h/o MN/HTN/Hyperlipidemia/DM/1ppd tobacco user. Timing/Duration: weeks (2 wks) Severity: mild ENT Location: throat Prearrival Treatment: prescription meds Modifying Factors: Improves With: other (Swallowing) Associated Symptoms: nasal congestion/drainage, sore throat, difficulty swallowing, No ear pain (R), No ear pain (L), No cough, No fever, No chills, No change in hearing, No dizziness, No drooling, No ear drainage, No facial pain/swelling, No headache, No hearing loss, No jaw pain, No malaise, No motion sickness, No epistaxis, No nasal foreign body, No neck pain, No poor fluid intake, No poor solids intake, No ringing of ears, No swollen glands, No sinus infection, No tooth pain, No voice change Allergies/Adverse Reactions: No Known Drug Allergies Allergy (Verified 04/30/21 08:35) Home Medications: ARIPiprazole [Aripiprazole] 15 mg PO DAILY 03/21/21 [History] Alendronate Sodium 70 mg [Fosamax 70 MG] 70 mg PO WEEKLY 03/21/21 [History] Aspirin EC 81 mg [Ecotrin 81 mg] 81 mg PO DAILY 03/21/21 [History] Atorvastatin Calcium 80 mg PO DAILY 03/21/21 [History] Clopidogrel Bisulfate 75 mg [PLAVIX 75 MG Tablet] 75 mg PO DAILY 03/21/21 [History] Enalapril Maleate 10 mg [Vasotec 10 MG] 10 mg PO BID 03/21/21 [History] Ezetimibe 10 mg [Zetia 10 MG] 10 mg PO HS 03/21/21 [History] Fenofibrate,Micronized 145 mg* [Tricor 145 MG] 145 mg PO DAILY 03/21/21 [History] Furosemide 40 mg [Lasix 40 MG] 40 mg PO DAILY 03/21/21 [History] Gabapentin 300 mg [Neurontin 300 mg] 300 mg PO DAILY 03/21/21 [History] Icosapent Ethyl [Vascepa] 2 gm PO BID 03/21/21 [History] Insulin Lispro [Humalog] 400 unit SQ 0730 03/21/21 [History] Isosorbide Mononitrate 30 mg [Imdur 30 MG] 30 mg PO DAILY 03/21/21 [History] Metoprolol Tartrate 25 mg [Lopressor 25MG Tab] 25 mg PO BID 03/21/21 [History] Potassium Chloride 10 meq PO DAILY 03/21/21 [History] Pramipexole Di-HCl [Pramipexole Dihydrochloride] 0.25 mg PO HS 03/21/21 [History] Venlafaxine HCl [Venlafaxine HCl ER] 150 mg PO HS 03/21/21 [History] clonazePAM 0.5 mg PO HS 03/21/21 [History] Insulin Lispro 170 unit SQ DINNER 03/26/21 [History] Insulin Lispro [Humalog] 420 unit SQ LUNCH 03/26/21 [History] Hx Tetanus, Diphtheria Vaccination/Date Given: Yes Hx Influenza Vaccination/Date Given: Yes Hx Pneumococcal Vaccination/Date Given: Yes Immunizations Up to Date: Yes Travel Risk - International Travel Have you traveled outside of the country in past 3 weeks: No - Coronavirus Screening Are you exhibiting any of the following symptoms?: No Close contact with a COVID-19 positive Pt in past 14-21 Days: No - Vaccine Status Have you recieved a Covid-19 vaccination: Yes 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[employer] - Vaccination Dates Date of 2cond Vaccination (if applicable): unknown - Review of Systems Constitutional: No Symptoms Eyes: No Symptoms Ears, Nose, & Throat: No Symptoms, Nose Discharge, Throat Pain Respiratory: No Symptoms Cardiac: No Symptoms Abdominal/Gastrointestinal: No Symptoms Genitourinary Symptoms: No Symptoms Musculoskeletal: No Symptoms Skin: No Symptoms Neurological: No Symptoms Psychological: No Symptoms Endocrine: No Symptoms Hematologic/Lymphatic: No Symptoms Immunological/Allergic: No Symptoms - Past Medical History Pertinent Past Medical History: Yes Neurological History: No Pertinent History ENT History: No Pertinent History Cardiac History: Congestive Heart Failure, Hypertension Respiratory History: COPD Endocrine Medical History: Diabetes Type II Musculoskeletal History: No Pertinent History GI Medical History: No Pertinent History History: No Pertinent History Psycho-Social History: Anxiety, Depression Male Reproductive Disorders: No Pertinent History - Past Surgical History Past Surgical History: Yes Neuro Surgical History: No Pertinent History Cardiac: No Pertinent History Respiratory: No Pertinent History Gastrointestinal: Appendectomy Genitourinary: No Pertinent History Musculoskeletal: Orthopedic Surgery Male Surgical History: No Pertinent History - Social History Smoking Status: Current every day smoker How long have you smoked: years Exposure to second hand smoke: Yes Drug Use: none Patient Lives Alone: No Significant Family History: no pertinent family hx - Nursing Vital Signs Nursing Vital Signs: Initial Vital Signs Temperature 97.3 F 04/30/21 08:35 Pulse Rate 92 H 04/30/21 08:35 Respiratory Rate 16 04/30/21 08:35 Blood Pressure 143/72 04/30/21 08:35 O2 Sat by Pulse Oximetry 95 04/30/21 08:35 Pain Scale Pain Intensity 0 Hypertensive - Physical Exam General Appearance: no apparent distress Eye Exam: bilateral eye: normal inspection, PERRL, EOMI Ear Exam: bilateral ear: other (Cerumen impaction B) Nasal Exam: normal inspection Neck Exam: normal inspection, non-tender, supple, full range of motion, trachea midline Cardiovascular/Respiratory Exam: regular rate/rhythm, heart sounds normal, rales (B bases) Abdominal Exam: non-tender, soft (Obese) Neurologic Exam: alert, oriented x 3, cooperative, biochemical development engineer II-XII nml as tested, normal mood/affect, nml cerebellar function, nml station & gait, sensation nml, No motor deficits, No sensory deficit Skin Exam: normal color, warm, dry SpO2 Interpretation: normal SpO2: 95 O2 Delivery: Room Air - Course Nursing assessment & vital signs reviewed: Yes EKG Interpreted by Me: RATE (NSR/Rate90/RBBB/ST depression inferior leads, similar to EKG 03/25/21/Prolonged QTc) - CT Exams Soft Tissue Neck CT Interpretation: Discussed w/radiologist (Mass at base of tongue/L maxillary sinus dz) Ordered Tests: Active Orders 24 hr Category Date Time Status EKG-ER Only STAT Care 04/30/21 08:55 Completed IV Insertion STAT Care 04/30/21 08:54 Completed NECK WITH CONTRAST [CT] Stat Exams 04/30/21 08:56 Completed CBC W DIFF Stat Lab 04/30/21 09:01 Completed CMP Stat Lab 04/30/21 09:01 Completed COVID AG-BINAX NOW RAPID TEST Stat Lab 04/30/21 10:02 Completed TROPONIN Q3H Lab 04/30/21 09:01 Completed TROPONIN Q3H Lab 04/30/21 10:50 Completed Lab/Rad Data: Laboratory Result Diagrams 04/30/21 09:01 04/30/21 09:01 Laboratory Results 04/30/21 04/30/21 04/30/21 Range/Units 10:50 10:02 10:02 WBC (4.0-10.5) K/mm3 RBC (4.1-5.6) M/mm3 Hgb (12.5-18.0) gm/dl Hct (42-50) % MCV (78-100) fl MCH (26-32) pg MCHC (32-36) g/dl RDW (11.5-14.0) % Plt Count (150-450) K/mm3 MPV (7.5-11.0) fl Gran % (36.0-66.0) % Eos # (Auto) (0-0.5) Absolute Lymphs (auto) (1.0-4.6) Absolute Monos (auto) (0.0-1.3) Lymphocytes % (24.0-44.0) % Monocytes % (0.0-12.0) % Eosinophils % (0.00-5.0) % Basophils % (0.0-0.4) % Absolute Granulocytes (1.4-6.9) Basophils # (0-0.4) Sodium (137-145) mmol/L Potassium (3.5-5.1) mmol/L Chloride (98-107) mmol/L Carbon Dioxide (22-30) mmol/L Anion Gap (5-15) MEQ/L BUN (9-20) mg/dL Creatinine (0.66-1.25) mg/dL Estimated GFR ML/MIN Glucose (74-106) mg/dL Calcium (8.4-10.2) mg/dL Total Bilirubin (0.2-1.3) mg/dL AST (17-59) U/L ALT (0-50) U/L Alkaline Phosphatase (38-126) U/L Troponin I < 0.012 (0.000-0.034) ng/mL Serum Total Protein (6.3-8.2) g/dL Albumin (3.5-5.0) g/dL SARS-CoV-2 Ag (Rapid) NEGATIVE (NEGATIVE) Group A Strep Antibody NOT DETECTED (NEGATIVE) 04/30/21 04/30/21 04/30/21 Range/Units 09:01 09:01 09:01 WBC 7.8 (4.0-10.5) K/mm3 RBC 5.41 (4.1-5.6) M/mm3 Hgb 16.1 (12.5-18.0) gm/dl Hct 48.4 (42-50) % MCV 89.5 (78-100) fl MCH 29.8 (26-32) pg MCHC 33.3 (32-36) g/dl RDW 14.6 H (11.5-14.0) % Plt Count 193 (150-450) K/mm3 MPV 11.0 (7.5-11.0) fl Gran % 61.9 (36.0-66.0) % Eos # (Auto) 0.11 (0-0.5) Absolute Lymphs (auto) 2.12 (1.0-4.6) Absolute Monos (auto) 0.56 (0.0-1.3) Lymphocytes % 27.4 (24.0-44.0) % Monocytes % 7.2 (0.0-12.0) % Eosinophils % 1.4 (0.00-5.0) % Basophils % 2.1 (0.0-0.4) % Absolute Granulocytes 4.80 (1.4-6.9) Basophils # 0.16 (0-0.4) Sodium 137 (137-145) mmol/L Potassium 4.7 (3.5-5.1) mmol/L Chloride 102 (98-107) mmol/L Carbon Dioxide 26 (22-30) mmol/L Anion Gap 14.2 (5-15) MEQ/L BUN 16 (9-20) mg/dL Creatinine 0.60 L (0.66-1.25) mg/dL Estimated GFR > 60.0 ML/MIN Glucose 280 H (74-106) mg/dL Calcium 9.6 (8.4-10.2) mg/dL Total Bilirubin 0.80 (0.2-1.3) mg/dL AST 66 H (17-59) U/L ALT 88 H (0-50) U/L Alkaline Phosphatase 89 (38-126) U/L Troponin I < 0.012 (0.000-0.034) ng/mL Serum Total Protein 7.9 (6.3-8.2) g/dL Albumin 4.5 (3.5-5.0) g/dL SARS-CoV-2 Ag (Rapid) (NEGATIVE) Group A Strep Antibody (NEGATIVE) - Progress Progress: unchanged Progress Note: 04/30/21 11:51 Dr. Cosby(ENT) 05/08/21 at 10:30(unable to get pt appointment in [place] in reasonable time frame) 04/30/21 17:18 Counseled pt/family regarding: lab results, diagnosis, need for follow-up, rad results - Departure Departure Disposition: Home Clinical Impression: Mass of tongue, Sinusitis Condition: Stable Critical Care Time: No Referrals: LUISITO MONROE [Primary Care Provider] - Follow up/PCP as directed Instructions: Sinusitis, Adult (DC) Additional Instructions: Dr. Cosby/ENT [place] 05/08/21 at 10:30, Show up at 10:00AM Prescriptions: Amoxicillin 875 mg PO BID #20 tablet
[2021-04-30 09:33] LABS: ALBUMIN 4.5 g/dL (3.5-5.0); ALKALINE PHOSPHATASE 89 U/L (38-126); ANION GAP 14.2 MEQ/L (5-15); BLOOD UREA NITROGEN 16 mg/dL (9-20); CHLORIDE 102 mmol/L (98-107); Calcium 9.6 mg/dL (8.4-10.2); Carbon Dioxide 26 mmol/L (22-30); EST GLOMERULAR FILTRATION RATE > 60.0 ML/MIN; Glucose 280 mg/dL (74-106); Potassium 4.7 mmol/L (3.5-5.1); SGOT/AST 66 U/L (17-59); SGPT/ALT 88 U/L (0-50); SODIUM 137 mmol/L (137-145); Total Protein 7.9 g/dL (6.3-8.2)
--- NOTE | 2021-04-30 10:10 | XRAY ---
Indication: Trouble swallowing. Multiple contiguous axial images obtained through the neck using 80 cc Isovue 370 contrast. Comparison: None Patient is edentulous. Parotid and submandibular glands are bilaterally symmetric. A few tiny bilateral cervical lymph nodes. No pathologic cervical/supraclavicular lymphadenopathy. Thyroid gland enhances homogeneously. Major arteries and veins are normal in course and caliber with moderate carotid calcifications, right greater than left. Base of tongue demonstrates a soft tissue mass towards the right measuring 1.2 x 2.1 x 2.7 cm. Visualized osseous structures intact with minimal/mild multilevel degenerative changes greatest at C3-C4. Floor left maxillary sinus demonstrates mild mucosal thickening. Incidental bilateral exophthalmus. Base of brain and lung apices are unremarkable. Impression: 1. Eccentric soft tissue mass bases of tongue better evaluated with direct laryngoscopy. 2. Incidental left maxillary sinus disease, bilateral exophthalmus, degenerative spondylosis, and bilateral carotid arteriosclerotic calcifications.
[2021-04-30 11:35] LABS: COVID AG -BINAX NOW RAPID TEST NEGATIVE (NEGATIVE)
[2021-04-30 12:00] VITALS: PULSE 88
[2021-04-30 17:19] VITALS: O2SAT 95
== END 2021-04-30 12:03 | disposition home or self-care (01) ==
LOC: ED 08:31
DX: K14.8 Other diseases of tongue (principal); R22.9 Localized swelling, mass and lump, unspecified; J01.00 Acute maxillary sinusitis, unspecified; R09.81 Nasal congestion; I11.0 Hypertensive heart disease with heart failure; I50.9 Heart failure, unspecified; Z72.0 Tobacco use; E78.5 Hyperlipidemia, unspecified; J44.9 Chronic obstructive pulmonary disease, unspecified; E11.9 Type 2 diabetes mellitus without complications; Z79.4 Long term (current) use of insulin; Z79.01 Long term (current) use of anticoagulants; Z79.899 Other long term (current) drug therapy
CPT/HCPCS: 36000; 36415; 70491; 80053; 84484; 85025; 87651; 93005; 99000; 99284

== ENCOUNTER 2022-07-27 19:14 | Emergency (ER) | payer MEDICARE ==
--- NOTE | 2022-07-27 19:16 | ERPHSYRPT ---
- History of Present Illness Time Seen by Provider: 07/27/22 19:15 Historian: patient Exam Limitations: no limitations Physician History: This is an obese 61-year-old white male patient who presents with relatively sudden onset of right flank pain and right-sided abdominal pain that occurred this morning at 7 AM. Patient is coughing worsens the pain. Patient states his coughing is not different than his usual coughing from chronic COPD. Patient denies chest pain. He denies shortness of breath. Patient is an insulin- dependent diabetic with a history of hypertension, hyperlipidemia, CHF, COPD and anxiety. Patient has not had a fever. He has no constipation or diarrhea. He has had no nausea or vomiting. Timing/Duration: today Activities at Onset: none Abdominal Pain Onset Location: RUQ, flank (Right) Pain Radiation: no radiation Severity of Pain-Max: moderate Severity of Pain-Current: mild (To moderate) Modifying Factors: Improves With: nothing Associated Symptoms: denies symptoms Previous symptoms: no prior history Allergies/Adverse Reactions: No Known Drug Allergies Allergy (Verified 07/27/22 19:28) Home Medications: ARIPiprazole [Aripiprazole] 15 mg PO DAILY 03/21/21 [History] Alendronate Sodium 70 mg [Fosamax 70 MG] 70 mg PO WEEKLY 03/21/21 [History] Aspirin EC 81 mg [Ecotrin 81 mg] 81 mg PO DAILY 03/21/21 [History] Atorvastatin Calcium 80 mg PO DAILY 03/21/21 [History] Clopidogrel Bisulfate [PLAVIX Tablet] 75 mg PO DAILY 03/21/21 [History] Enalapril Maleate 10 mg [Vasotec 10 MG] 10 mg PO BID 03/21/21 [History] Ezetimibe 10 mg [Zetia 10 MG] 10 mg PO HS 03/21/21 [History] Fenofibrate,Micronized 145 mg* [Tricor 145 MG] 145 mg PO DAILY 03/21/21 [History] Furosemide 40 mg [Lasix 40 MG] 40 mg PO DAILY 03/21/21 [History] Gabapentin [Neurontin ] 300 mg PO BID 03/21/21 [History] Icosapent Ethyl [Vascepa] 2 gm PO BID 03/21/21 [History] Insulin Lispro [Humalog] 400 unit SQ 0730 03/21/21 [History] Isosorbide Mononitrate 30 mg [Imdur 30 MG] 30 mg PO DAILY 03/21/21 [History] Metoprolol Tartrate 25 mg [Lopressor 25MG Tab] 25 mg PO BID 03/21/21 [History] Potassium Chloride 10 meq PO DAILY 03/21/21 [History] Pramipexole Di-HCl [Pramipexole Dihydrochloride] 0.25 mg PO HS 03/21/21 [History] Venlafaxine HCl [Venlafaxine HCl ER] 150 mg PO HS 03/21/21 [History] clonazePAM 0.5 mg PO HS 03/21/21 [History] Insulin Lispro 170 unit SQ DINNER 03/26/21 [History] Insulin Lispro [Humalog] 420 unit SQ LUNCH 03/26/21 [History] Hx Tetanus, Diphtheria Vaccination/Date Given: Yes Hx Influenza Vaccination/Date Given: Yes Hx Pneumococcal Vaccination/Date Given: Yes Travel Risk - International Travel Have you traveled outside of the country in past 3 weeks: No - Coronavirus Screening Are you exhibiting any of the following symptoms?: No Close contact with a COVID-19 positive Pt in past 14-21 Days: No - Vaccine Status Have you recieved a Covid-19 vaccination: 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[employer] - Vaccination Dates Date of 2cond Vaccination (if applicable): unknown - Review of Systems Constitutional: No Symptoms Eyes: No Symptoms Ears, Nose, & Throat: No Symptoms Respiratory: No Symptoms Cardiac: No Symptoms Abdominal/Gastrointestinal: Abdominal Pain (Right upper quadrant/right lower quadrant), No Nausea, No Vomiting, No Diarrhea, No Constipation Genitourinary Symptoms: No Symptoms Musculoskeletal: No Symptoms Skin: No Symptoms Neurological: No Symptoms Psychological: No Symptoms Endocrine: No Symptoms Hematologic/Lymphatic: No Symptoms Immunological/Allergic: No Symptoms All Other Systems: Reviewed and Negative - Past Medical History Pertinent Past Medical History: Yes Neurological History: No Pertinent History ENT History: No Pertinent History Cardiac History: Congestive Heart Failure, Hypertension Respiratory History: COPD Endocrine Medical History: Diabetes Type II Musculoskeletal History: No Pertinent History GI Medical History: No Pertinent History History: No Pertinent History Psycho-Social History: Anxiety, Depression Male Reproductive Disorders: No Pertinent History - Past Surgical History Past Surgical History: Yes Neuro Surgical History: No Pertinent History Cardiac: No Pertinent History Respiratory: No Pertinent History Gastrointestinal: Appendectomy Genitourinary: No Pertinent History Musculoskeletal: Orthopedic Surgery Male Surgical History: No Pertinent History - Social History Smoking Status: Current every day smoker How long have you smoked: years Exposure to second hand smoke: Yes Drug Use: none Patient Lives Alone: No Significant Family History: no pertinent family hx - Nursing Vital Signs Nursing Vital Signs: Initial Vital Signs Temperature 97.3 F 07/27/22 19:27 Pulse Rate 104 H 07/27/22 19:27 Respiratory Rate 18 07/27/22 19:27 Blood Pressure 172/80 07/27/22 19:27 O2 Sat by Pulse Oximetry 96 07/27/22 19:27 Pain Scale Pain Intensity 3 - Physical Exam General Appearance: no apparent distress, alert, anxiety, obese Eye Exam: PERRL/EOMI, eyes nml inspection Ears, Nose, Throat Exam: normal ENT inspection, moist mucous membranes Neck Exam: normal inspection, non-tender, supple, full range of motion Respiratory Exam: normal breath sounds, lungs clear, airway intact, No chest tenderness, No respiratory distress Cardiovascular Exam: regular rate/rhythm, normal heart sounds, normal peripheral pulses Gastrointestinal/Abdomen Exam: soft, normal bowel sounds, tenderness (Right u pper quadrant right lower quadrant right flank) Rectal Exam: deferred Back Exam: normal inspection, normal range of motion, CVA tenderness (Right), ve rtebral tenderness Extremity Exam: normal inspection, normal range of motion, pelvis stable Neurologic Exam: alert, oriented x 3, cooperative, parts interpreter II-XII nml as tested, normal mood/affect, nml cerebellar function, nml station & gait, sensation nml Skin Exam: normal color, warm, dry Lymphatic Exam: No adenopathy SpO2 Interpretation: normal O2 Delivery: Room Air - Course Nursing assessment & vital signs reviewed: Yes Ordered Tests: Active Orders 24 hr Category Date Time Status IV Insertion STAT Care 07/27/22 19:48 Active ABDOMEN AND PELVIS W/0 CONTRAS [CT] Stat Exams 07/27/22 19:47 Taken AMYLASE Stat Lab 07/27/22 19:52 Completed CBC W DIFF Stat Lab 07/27/22 19:52 Completed CMP Stat Lab 07/27/22 19:52 Completed LIPASE Stat Lab 07/27/22 19:52 Completed UA W/RFX UR CULTURE Stat Lab 07/27/22 19:48 Completed Medication Summary Discontinued Medications Generic Name Dose Route Start Last Admin Trade Name Geri PRN Reason Stop Dose Admin Hydromorphone HCl 1 mg 07/27/22 19:53 07/27/22 20:22 Hydromorphone 1 Mg/1ml Inj IV 07/27/22 19:54 1 mg STAT ONE Administration Hydromorphone HCl Confirm 07/27/22 20:17 Hydromorphone 1 Mg/1ml Inj Administered 07/27/22 20:18 Dose 1 mg .ROUTE .STK-MED ONE Sodium Chloride 1,000 mls @ 999 mls/hr 07/27/22 19:53 07/27/22 20:21 Sodium Chloride 0.9% 1000 Ml IV 07/27/22 20:53 999 mls/hr .Q1H1M STA Administration Sodium Chloride Confirm 07/27/22 20:17 Sodium Chloride 0.9% 1000 Ml Administered 07/27/22 20:18 Dose 1,000 mls @ ud .ROUTE .STK-MED ONE Ondansetron HCl 4 mg 07/27/22 19:53 07/27/22 20:21 Ondansetron Hcl 4 Mg/2 Ml Vial IV 07/27/22 19:54 4 mg STAT ONE Administration Ondansetron HCl Confirm 07/27/22 20:17 Ondansetron Hcl 4 Mg/2 Ml Vial Administered 07/27/22 20:18 Dose 4 mg .ROUTE .STK-MED ONE Lab/Rad Data: Laboratory Result Diagrams 07/27/22 19:52 07/27/22 19:52 Laboratory Results 07/27/22 07/27/22 07/27/22 Range/Units 19:52 19:52 19:48 WBC 8.9 (4.0-10.5) x10^3/uL RBC 5.42 (4.1-5.6) x10^6/uL Hgb 16.3 (12.5-18.0) g/dL Hct 50.5 H (42-50) % MCV 93.2 (78-100) fL MCH 30.1 (26-32) pg MCHC 32.3 (32-36) g/dL RDW 13.5 (11.5-14.0) % Plt Count 180 (150-450) x10^3/uL MPV 10.6 (7.5-11.0) fL Gran % 56.8 (36.0-66.0) % Immature Gran % (Auto) 1.0 H (0.00-0.4) % Nucleat RBC Rel Count 0.0 (0.00-0.1) % Eos # (Auto) 0.15 (0-0.5) x10^3/uL Immature Gran # (Auto) 0.09 H (0.00-0.03) x10^3u/L Absolute Lymphs (auto) 2.89 (1.0-4.6) x10^3/uL Absolute Monos (auto) 0.63 (0.0-1.3) x10^3/uL Absolute Nucleated RBC 0.00 (0.00-0.01) x10^3u/L Lymphocytes % 32.5 (24.0-44.0) % Monocytes % 7.1 (0.0-12.0) % Eosinophils % 1.7 (0.00-5.0) % Basophils % 0.9 (0.0-0.4) % Absolute Granulocytes 5.05 (1.4-6.9) x10^3/uL Basophils # 0.08 (0-0.4) x10^3/uL Sodium 141 (137-145) mmol/L Potassium 3.7 (3.5-5.1) mmol/L Chloride 102 (98-107) mmol/L Carbon Dioxide 26 (22-30) mmol/L Anion Gap 17.1 H (5-15) MEQ/L BUN 10 (9-20) mg/dL Creatinine 0.73 (0.66-1.25) mg/dL Estimated GFR > 60.0 ML/MIN Glucose 227 H (74-106) mg/dL Calcium 9.8 (8.4-10.2) mg/dL Total Bilirubin 0.40 (0.2-1.3) mg/dL AST 53 (17-59) U/L ALT 75 H (0-50) U/L Alkaline Phosphatase 81 (38-126) U/L Serum Total Protein 8.3 H (6.3-8.2) g/dL Albumin 4.4 (3.5-5.0) g/dL Amylase 50 (30-110) U/L Lipase 95 (23-300) U/L Urine Color Yellow (Yellow) Urine Appearance Clear (Clear) Urine pH 5.5 (4.6-8.0) Ur Specific Electra >=1.030 A (1.005-1.030) Urine Protein 30 (Negative) Urine Glucose (UA) >=1000 A (Negative) mg/dL Urine Ketones Trace A (Negative) Urine Blood Negative (Negative) Urine Nitrite Negative (Negative) Urine Bilirubin Negative (Negative) Urine Urobilinogen 1.0 A (0.2) mg/dL Ur Leukocyte Esterase Negative (Negative) U Hyaline Cast (Auto) NONE SEEN (0-2) /LPF Urine Microscopic RBC 0-2 (0-5) /HPF Urine Microscopic WBC 0-2 (0-5) /HPF Ur Epithelial Cells None Seen (None Seen) /HPF Urine Bacteria None Seen (None Seen) /HPF Urine Culture Reflexed NO (NO) - Progress Progress: improved, pain not gone completely, re-examined Progress Note: 07/27/22 21:51 This patient's CAT scan of the abdomen pelvis without contrast shows left lobe of the liver with 5.6 x 3 0.8 x 4.7 x 1.9 indeterminate hypodense masses. In addition there are masses of the right kidney that are indeterminate measuring 1.5 x 4.8 x 3.3 cm. There are no acute, emergent intra-abdominal or intrapelvic findings. The above findings were discussed with the patient and his spouse This patient's medical issue is 1 of moderate complexity. The level of complexity and the work-up performed based on review of the patient's past medical history, review of the patient's medication list, review of the patient's drug allergy list, history of present illness and physical findings on examination. The work-up includes CBC, CMP, amylase, lipase, urinalysis, CT scan of the abdomen and pelvis. We placed an intravenous line and provide him with intravenous fluid, intravenous Zofran, intravenous Dilaudid. His symptoms have improved. We will send 2 tablets of [place] 5/325 that he can take every 6-8 hours as needed for pain control. Patient is to call his primary care provider on 07/28/2022 for further evaluation and work-up including further evaluation of the liver and kidney indeterminate masses. Counseled pt/family regarding: lab results, diagnosis, need for follow-up, rad results Medical Desision Making - Independent Historian Additional History obtained from: Spouse - Diagnostic Testing Radiological Interpretation: Reviewed by me, Teleradiologist Report - Risk of complications Low Risk: Low risk of morbidity from additional dx testing or treatment - Departure Departure Disposition: Home Clinical Impression: Right sided abdominal pain, Liver mass, left lobe, Right kidney mass Condition: Stable Critical Care Time: No Referrals: JOSE C FERRIS NP, RN [Primary Care Provider] - Follow up/PCP as directed Additional Instructions: Continue your medication as prescribed. Call your primary care provider tomorrow morning, 07/28/2022, to make arranges for follow-up appointment and referral to a dry heat cabinet attendant and urologist if indicated for further evaluation and management of your liver masses and your renal mass.
[2022-07-27] MEDS ORDERED: Sodium Chloride 0.9% 1000 ML 1,000 ML IV STA (19:53)
[2022-07-27] MEDS ORDERED: Zofran 4 MG/2 ML VIAL IV ONE (19:53)
[2022-07-27] MEDS ORDERED: Hydromorphone 1 mg/ml Injection IV ONE (19:53)
[2022-07-27 20:13] LABS: Absolute Neutrophil Ct (ANC) 5.05 x10^3/uL (1.4-6.9); BASOPHIL % 0.9 % (0.0-0.4); Basophil (Absolute #) 0.08 x10^3/uL (0-0.4); Eosinophil % 1.7 % (0.00-5.0); Eosinophil (Absolute #) 0.15 x10^3/uL (0-0.5); Hematocrit 50.5 % (42-50); Hemoglobin 16.3 g/dL (12.5-18.0); IMMATURE GRAN # 0.09 x10^3u/L (0.00-0.03); Lymphocyte (Absolute #) 2.89 x10^3/uL (1.0-4.6); Lymphocytes % 32.5 % (24.0-44.0); Mean Cell Volume 93.2 fL (78-100); Mean Corpuscular Hemoglobin 30.1 pg (26-32); Mean Corpuscular Hgb Concent. 32.3 g/dL (32-36); Mean Platelet Volume 10.6 fL (7.5-11.0); Monocyte (Absolute #) 0.63 x10^3/uL (0.0-1.3); Monocytes % 7.1 % (0.0-12.0); Neutrophil % 56.8 % (36.0-66.0); Platelet Count 180 x10^3/uL (150-450); Red Blood Count 5.42 x10^6/uL (4.1-5.6); Red Cell Distribution Width 13.5 % (11.5-14.0); White Blood Count 8.9 x10^3/uL (4.0-10.5)
[2022-07-27] MEDS ORDERED: Sodium Chloride 0.9% 1000 ML 1,000 ML ONE (20:17)
[2022-07-27] MEDS ORDERED: Zofran 4 MG/2 ML VIAL ONE (20:17)
[2022-07-27] MEDS ORDERED: Hydromorphone 1 mg/ml Injection ONE (20:17)
[2022-07-27 20:18] LABS: Appearance Clear (Clear); Bacteria None Seen /HPF (None Seen); Bilirubin Negative (Negative); Blood Negative (Negative); Epithelial Cells None Seen /HPF (None Seen); Glucose, Urine >=1000 mg/dL (Negative); Hyaline Casts NONE SEEN /LPF (0-2); Ketones Trace (Negative); Leukocyte Esterase Negative (Negative); Nitrite Negative (Negative); Ph 5.5 (4.6-8.0); Protein,Urine Dip 30 (Negative); RBC 0-2 /HPF (0-5); Specific Gravity >=1.030 (1.005-1.030); WBC 0-2 /HPF (0-5)
[2022-07-27 20:23] LABS: ADD URINE CULTURE? NO (NO)
[2022-07-27 20:32] LABS: ALBUMIN 4.4 g/dL (3.5-5.0); ALKALINE PHOSPHATASE 81 U/L (38-126); AMYLASE 50 U/L (30-110); ANION GAP 17.1 MEQ/L (5-15); BLOOD UREA NITROGEN 10 mg/dL (9-20); CHLORIDE 102 mmol/L (98-107); Calcium 9.8 mg/dL (8.4-10.2); Carbon Dioxide 26 mmol/L (22-30); Creatinine 1 0.73 mg/dL (0.66-1.25); EST GLOMERULAR FILTRATION RATE > 60.0 ML/MIN; Glucose 227 mg/dL (74-106); LIPASE 95 U/L (23-300); Potassium 3.7 mmol/L (3.5-5.1); SGOT/AST 53 U/L (17-59); SGPT/ALT 75 U/L (0-50); SODIUM 141 mmol/L (137-145); Total Protein 8.3 g/dL (6.3-8.2)
[2022-07-27 21:17] VITALS: PULSE 88
[2022-07-27 22:13] VITALS: BP 124/54; O2SAT 95
[2022-07-27] MEDS ORDERED: NORCO 5/325 MG PO ONE (22:17)
[2022-07-27] MEDS ORDERED: NORCO 5/325 MG ONE (22:19)
--- NOTE | 2022-07-28 09:04 | XRAY ---
Indication: Right flank/right lower quadrant pain. Multiple contiguous axial images obtained through the abdomen and pelvis without contrast using renal stone protocol. Comparison: None Lung bases demonstrate dependent atelectasis. Heart not enlarged. Small hiatal hernia. No renal calculus or evidence for obstructive uropathy in either system. Noncontrasted stomach and bowel loops appear nonobstructed with previous appendectomy. Left lobe liver demonstrates 5.6 x 3.8 cm and smaller adjacent 4.7 x 1.9 cm hypodense masses. Right lower kidney demonstrates a 4.8 x 3.3 cm hyperdense exophytic mass. Similar smaller 1.5 cm right mid pole exophytic mass. Lack of IV contrast precludes further characterization of the above hepatic and right renal masses. Incidental tiny hepatic/splenic calcified granulomas, 20 cm fatty hepatomegaly, and bilateral adrenal hypertrophy. No free fluid/air. Remaining pancreas, left kidney, both ureters, and bladder are unremarkable for noncontrast exam. Moderate scattered fracture sclerotic calcifications including both intrarenal arteries. No AAA. Osseous structures demonstrate mild/moderate degenerative changes throughout visualized thoracolumbar spine and both hips. Impression: 1. No renal calculus or evidence for obstructive uropathy in either system. 2. Indeterminant hepatic and right renal masses as detailed. CT with contrast exam may yield further information. 3. Chronic findings including hiatal hernia, fatty hepatomegaly, bilateral adrenal hypertrophy, arteriosclerotic disease, chronic bony findings, and old granulomatous disease.
== END 2022-07-27 22:22 | disposition home or self-care (01) ==
LOC: ED 19:14
DX: R16.0 Hepatomegaly, not elsewhere classified (principal); N28.89 Other specified disorders of kidney and ureter; R10.11 Right upper quadrant pain; R10.31 Right lower quadrant pain; E11.9 Type 2 diabetes mellitus without complications; I11.0 Hypertensive heart disease with heart failure; I50.9 Heart failure, unspecified; E78.5 Hyperlipidemia, unspecified; Z79.02 Long term (current) use of antithrombotics/antiplatelets; Z79.4 Long term (current) use of insulin; Z79.899 Other long term (current) drug therapy; Z72.0 Tobacco use
CPT/HCPCS: 36000; 36415; 74176; 80053; 81001; 82150; 83690; 85025; 96374; 96375; 99284; J1170; J2405; A9270-GY

== ENCOUNTER 2023-01-16 20:34 | Emergency (ER) | payer MEDICARE, OTHER, SELFPAY ==
[2023-01-16 20:57] VITALS: TEMP 98.1
[2023-01-16] MEDS ORDERED: DUONEB 0.5-3 MG/3 ml Neb IH ONE ×2 (20:58→21:08)
[2023-01-16] MEDS ORDERED: solu-MEDROL 125 MG, Sterile H2O 10 ml 2 ML IV ONE ×2 (20:58)
[2023-01-16] MEDS ORDERED: solu-MEDROL ONE (21:33)
[2023-01-16] MEDS ORDERED: Sodium Chloride 0.9% 500 ML 500 ML IV ONE ×2 (21:33→21:36)
[2023-01-16] MEDS ORDERED: Sterile H2O 10 ml IJ ONE (21:33)
[2023-01-16 21:35] LABS: Absolute Neutrophil Ct (ANC) 3.08 x10^3/uL (1.4-6.9); Basophil (Absolute #) 0.06 x10^3/uL (0-0.4); Eosinophil % 1.9 % (0.00-5.0); Eosinophil (Absolute #) 0.11 x10^3/uL (0-0.5); Hematocrit 47.7 % (42-50); IMMATURE GRAN # 0.02 x10^3u/L (0.00-0.03); IMMATURE GRAN % 0.3 % (0.00-0.4); Lymphocyte (Absolute #) 2.13 x10^3/uL (1.0-4.6); Lymphocytes % 36.2 % (24.0-44.0); Mean Cell Volume 91.7 fL (78-100); Mean Corpuscular Hemoglobin 30.8 pg (26-32); Mean Corpuscular Hgb Concent. 33.5 g/dL (32-36); Mean Platelet Volume 11.4 fL (7.5-11.0); Monocyte (Absolute #) 0.48 x10^3/uL (0.0-1.3); Monocytes % 8.2 % (0.0-12.0); Neutrophil % 52.4 % (36.0-66.0); Platelet Count 145 x10^3/uL (150-450); Red Cell Distribution Width 12.5 % (11.5-14.0); White Blood Count 5.9 x10^3/uL (4.0-10.5)
[2023-01-16 21:49] LABS: ALBUMIN 4.6 g/dL (3.5-5.0); ANION GAP 16.6 MEQ/L (5-15); BILIRUBIN,TOTAL 0.6 mg/dL (0.2-1.3); Calcium 9.9 mg/dL (8.4-10.2); Creatinine 1 0.72 mg/dL (0.66-1.25); EST GLOMERULAR FILTRATION RATE 102.7 ML/MIN; MAGNESIUM 1.5 mg/dL (1.6-2.3); Potassium 4.2 mmol/L (3.5-5.1); Total Protein 8.3 g/dL (6.3-8.2)
--- NOTE | 2023-01-16 22:03 | XRAY ---
CLINICAL HISTORY:SWELLING COMPARISON:None TECHNIQUE:Axial sections of the neck have been acquired without IV contrast. Coronal and sagittal sections have also been acquired. FINDINGS: Mild fat stranding is noted in the subcutaneous tissue at the back of the neck region, however, no abnormal soft tissue thickening or nodularity is noted. Calcific specks are seen in both parotid glands, and no solid or cystic focal lesion was identified. A 7mm reactive-appearing lymph node is seen in the right parotid gland. The rest of the salivary glands also show normal morphology. The thyroid shows normal symmetry. No pathologically significant cervical lymphadenopathy. Visualized brain parenchyma is normal. Visualized lung apices are normal. The visualized skeleton shows degenerative changes. IMPRESSION: Mild fat stranding noted in the subcutaneous tissue at the back of the neck, it is likely physiological. No abnormality seen in the neck in the acquired sections. Electronically Signed by: Ankita Salazar MD. (01/16/2023 22:00:49 EST)
[2023-01-16 22:11] LABS: INFLUENZA A NEGATIVE (NEGATIVE); INFLUENZA B NEGATIVE (NEGATIVE); RESPIRATORY SYNCTIAL VIRUS NEGATIVE (NEGATIVE); SARS-CoV-2 Xpert Express NEGATIVE (NEGATIVE)
--- NOTE | 2023-01-16 22:22 | XRAY ---
CLINICAL HISTORY:COUGH COMPARISON:With previous dated 03/25/2021 TECHNIQUE:Contiguous 3.[address] images of the chest were acquired without administration of intravenous contrast. Coronal and sagittal reconstructions were obtained. FINDINGS: A 9.0 mm densely calcified nodule is seen in the right apical region. A small patch of honeycomb formation (image 20 of series 4) with a simple 5 mm cyst is noted along the right upper lobe. No consolidation or soft tissue nodularity was seen on either side. Subsegmental atelectatic changes were seen in the left basal lung. No free or encysted pleural effusion. Heart size is normal, and there is no pericardial effusion. No pathologically enlarged mediastinal, hilar, or axillary lymph node was identified. Few calcified nodes are seen in mediastinum suggestive of previous infectious insult. There is no definite mass lesion in the chest wall. Few small calcifications are seen in the liver and spleen in acquired sections. The visualized skeleton shows degenerative changes. Moderate atherosclerotic changes are noted in the thoracic aorta. IMPRESSION: No acute pathology noted in both lungs. 9.0 mm calcified nodule in right apical region and calcified mediastinal nodes are suggestive of previous infectious insult. Small patch of honey comb formation and a simple 5.0 mm cyst in right upper lobe are suggestive of senile changes. Electronically Signed by: Ankita Salazar MD. (01/16/2023 22:18:23 EST)
[2023-01-16] MEDS ORDERED: Fortaz/Tazicef 2 GM in D5w 100ML Mini Bag 100 ML 100 ML IV SCH (23:15)
--- NOTE | 2023-01-16 23:55 | ERPHSYRPT ---
- History of Present Illness Time Seen by Provider: 01/16/23 20:43 Source: patient, family Exam Limitations: no limitations Patient Subjective Stated Complaint: pt states he feels like he is drowning in his saliva. states he has trouble swallowing it andhas had diff for years. today is worse Triage Nursing Assessment: pt alert and oriented, answers questions approp. pt ambulates back to room with steady gait noted. pt short of breath while sitting in bed. lung sounds cta bilat. swelling noted around bilat clavicle area. pt states is worse than usual today Physician History: 62 years old male with multiple medical problems including hypertension, hyperlipidemia, diabetes mellitus, chronic difficulty swallowing, chronic swelling around upper body/neck area with difficulty swallowing his own saliva presented to the ER with progressive worsening lately. Patient reports it feels like he is drowning in saliva. Patient reports congestion in the sinuses and soreness of throat causing him difficult breathing. Denies any chest pain but does have minimal productive cough for the last couple of days. He was eval uated yesterday at urgent care as well. Denies any fever or chills. Allergies/Adverse Reactions: No Known Drug Allergies Allergy (Verified 01/16/23 20:57) Home Medications: ARIPiprazole [Aripiprazole] 15 mg PO DAILY 03/21/21 [History] Alendronate Sodium 70 mg [Fosamax 70 MG] 70 mg PO WEEKLY 03/21/21 [History] Aspirin EC 81 mg [Ecotrin 81 mg] 81 mg PO DAILY 03/21/21 [History] Atorvastatin Calcium 80 mg PO DAILY 03/21/21 [History] Clopidogrel Bisulfate [PLAVIX Tablet] 75 mg PO DAILY 03/21/21 [History] Enalapril Maleate 10 mg [Vasotec 10 MG] 10 mg PO BID 03/21/21 [History] Ezetimibe 10 mg [Zetia 10 MG] 10 mg PO HS 03/21/21 [History] Fenofibrate,Micronized 145 mg* [Tricor 145 MG] 145 mg PO DAILY 03/21/21 [Hist ory] Furosemide 40 mg [Lasix 40 MG] 40 mg PO DAILY 03/21/21 [History] Gabapentin [Neurontin ] 300 mg PO BID 03/21/21 [History] Icosapent Ethyl [Vascepa] 2 gm PO BID 03/21/21 [History] Insulin Lispro [Humalog] 400 unit SQ 0730 03/21/21 [History] Isosorbide Mononitrate 30 mg [Imdur 30 MG] 30 mg PO DAILY 03/21/21 [History] Metoprolol Tartrate 25 mg [Lopressor 25MG Tab] 25 mg PO BID 03/21/21 [History] Potassium Chloride 10 meq PO DAILY 03/21/21 [History] Pramipexole Di-HCl [Pramipexole Dihydrochloride] 0.25 mg PO HS 03/21/21 [History] Venlafaxine HCl [Venlafaxine HCl ER] 150 mg PO HS 03/21/21 [History] clonazePAM 0.5 mg PO HS 03/21/21 [History] Insulin Lispro 170 unit SQ DINNER 03/26/21 [History] Insulin Lispro [Humalog] 420 unit SQ LUNCH 03/26/21 [History] Hx Tetanus, Diphtheria Vaccination/Date Given: Yes Hx Influenza Vaccination/Date Given: Yes Hx Pneumococcal Vaccination/Date Given: Yes Immunizations Up to Date: Yes Travel Risk - International Travel Have you traveled outside of the country in past 3 weeks: No - Coronavirus Screening Are you exhibiting any of the following symptoms?: No Close contact with a COVID-19 positive Pt in past 14-21 Days: No - Vaccine Status Have you recieved a Covid-19 vaccination: Yes 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: [employer] - Vaccination Dates Date of 2cond Vaccination (if applicable): unknown - Review of Systems Constitutional: No Symptoms Eyes: No Symptoms Ears, Nose, & Throat: Throat Pain, Throat Swelling, Painful Swallowing Respiratory: Cough, Dyspnea, Wheezing Cardiac: No Symptoms Abdominal/Gastrointestinal: No Symptoms Genitourinary Symptoms: No Symptoms Musculoskeletal: No Symptoms Neurological: No Symptoms Endocrine: No Symptoms Hematologic/Lymphatic: No Symptoms - Past Medical History Pertinent Past Medical History: Yes Neurological History: No Pertinent History ENT History: No Pertinent History Cardiac History: Congestive Heart Failure, Hypertension Respiratory History: COPD Endocrine Medical History: Diabetes Type II Musculoskeletal History: No Pertinent History GI Medical History: Cirrhosis History: No Pertinent History Psycho-Social History: Anxiety, Depression Male Reproductive Disorders: No Pertinent History Other Medical History: elevated liver enzymes - Past Surgical History Past Surgical History: Yes Neuro Surgical History: No Pertinent History Cardiac: No Pertinent History Respiratory: No Pertinent History Gastrointestinal: Appendectomy Genitourinary: No Pertinent History Musculoskeletal: Orthopedic Surgery Male Surgical History: No Pertinent History Other Surgical History: wrist bart - Social History Smoking Status: Current every day smoker How long have you smoked: 50+ Exposure to second hand smoke: Yes Drug Use: none Patient Lives Alone: No Significant Family History: no pertinent family hx - Nursing Vital Signs Nursing Vital Signs: Initial Vital Signs Temperature 98.1 F 01/16/23 20:44 Pulse Rate 128 H 01/16/23 20:44 Respiratory Rate 28 H 01/16/23 20:44 Blood Pressure 169/80 01/16/23 20:44 O2 Sat by Pulse Oximetry 95 01/16/23 20:44 Pain Scale Pain Intensity 0 - Physical Exam General Appearance: no apparent distress, alert, anxiety Eye Exam: PERRL/EOMI Ears, Nose, Throat Exam: hearing grossly normal, sinus pain/drainage, pharyngeal erythema Neck Exam: non-tender, full range of motion, other (Diffuse swelling bilaterally upper neck/chest/back. Soft nontender) Respiratory Exam: normal breath sounds, lungs clear Cardiovascular/Chest Exam: normal heart sounds, tachycardia Abdominal/Gastrointestinal Exam: soft, normal bowel sounds, No tenderness Extremity Exam: non-tender, normal range of motion Neurologic Exam: alert, oriented x 3, cooperative, import clerk II-XII nml as tested, nml cerebellar function Skin Exam: normal color SpO2 Interpretation: normal SpO2: 95 O2 Delivery: Room Air - Course EKG Interpreted by Me: RATE (129), Sinus Tach, Right [place] Deviation, NORMAL INTERVALS, Q-wave, Other (ST depression in inferolateral leads) Ordered Tests: Active Orders 24 hr Category Date Time Status AMA [Release AMA] OM.NOW Care 01/17/23 00:03 Active EKG-ER Only STAT Care 01/16/23 20:58 Active IV Insertion STAT Care 01/16/23 20:58 Active CHEST WITHOUT CONTRAST [CT] Stat Exams 01/16/23 20:59 Completed NECK WO CONTRAST [CT] Stat Exams 01/16/23 20:59 Completed BLOOD CULTURE Stat Lab 01/16/23 21:20 Received CBC W DIFF Stat Lab 01/16/23 21:25 Completed CMP Stat Lab 01/16/23 21:25 Completed Lactic Acid Stat Lab 01/16/23 21:25 Completed Lactic Acid Stat Lab 01/16/23 23:29 Received MAGNESIUM Stat Lab 01/16/23 21:25 Completed NT PRO BNPII Stat Lab 01/16/23 21:25 Completed PROCALCITONIN Stat Lab 01/16/23 21:25 Completed TROPONIN Q4H Lab 01/16/23 21:25 Completed TROPONIN Q4H Lab 01/17/23 01:00 Ordered TROPONIN Q4H Lab 01/17/23 05:00 Ordered Respiratory Therapy Assessment DAILY RT 01/16/23 21:06 Active Medication Summary Generic Name Dose Route Start Last Admin Trade Name Freq PRN Reason Stop Dose Admin Ceftazidime 2 gm/ Dextrose 100 mls @ 200 mls/hr 01/16/23 23:15 01/16/23 23:57 IV 02/15/23 23:14 200 mls/hr Q8H NEEMA Administration Discontinued Medications Generic Name Dose Route Start Last Admin Trade Name Freq PRN Reason Stop Dose Admin Albuterol/Ipratropium 3 ml 01/16/23 20:58 01/16/23 22:23 Ipratropium/Albuterol Sulfate 3 Ml Ampul.Neb IH 01/16/23 20:59 Not Given STAT ONE Albuterol/Ipratropium Confirm 01/16/23 21:08 Ipratropium/Albuterol Sulfate 3 Ml Ampul.Neb Administered 01/16/23 21:09 Dose 3 ml IH .STK-MED ONE Methylprednisolone Sodium 0 mg 01/16/23 20:58 01/16/23 21:39 Succinate 125 mg/ Sterile IV 01/16/23 20:59 125 mg Water 2 ml STAT ONE Administration Sodium Chloride Confirm 01/16/23 21:33 Sodium Chloride 0.9% 500 Ml Administered 01/16/23 21:34 Dose 500 mls @ ud IV .STK-MED ONE Sodium Chloride 500 mls @ 500 mls/hr 01/16/23 21:36 01/16/23 22:38 Sodium Chloride 0.9% 500 Ml IV 01/16/23 22:35 Infused .Q1H ONE Infusion Methylprednisolone Sodium Succinate Confirm 01/16/23 21:33 Methylprednis Sod Succ 125 Mg/2 Ml Vial Administered 01/16/23 21:34 Dose 125 mg .ROUTE .STK-MED ONE Sterile Water Confirm 01/16/23 21:33 Water For Injection,Sterile 10 Ml Vial Administered 01/16/23 21:34 Dose 10 ml IJ .STK-MED ONE Lab/Rad Data: Laboratory Result Diagrams 01/16/23 21:25 01/16/23 21:25 Laboratory Results 01/16/23 01/16/23 01/16/23 Range/Units 22:35 21:25 21:25 WBC (4.0-10.5) x10^3/uL RBC (4.1-5.6) x10^6/uL Hgb (12.5-18.0) g/dL Hct (42-50) % MCV (78-100) fL MCH (26-32) pg MCHC (32-36) g/dL RDW (11.5-14.0) % Plt Count (150-450) x10^3/uL MPV (7.5-11.0) fL Gran % (36.0-66.0) % Immature Gran % (Auto) (0.00-0.4) % Nucleat RBC Rel Count (0.00-0.1) % Eos # (Auto) (0-0.5) x10^3/uL Immature Gran # (Auto) (0.00-0.03) x10^3u/L Absolute Lymphs (auto) (1.0-4.6) x10^3/uL Absolute Monos (auto) (0.0-1.3) x10^3/uL Absolute Nucleated RBC (0.00-0.01) x10^3u/L Lymphocytes % (24.0-44.0) % Monocytes % (0.0-12.0) % Eosinophils % (0.00-5.0) % Basophils % (0.0-0.4) % Absolute Granulocytes (1.4-6.9) x10^3/uL Basophils # (0-0.4) x10^3/uL Sodium (137-145) mmol/L Potassium (3.5-5.1) mmol/L Chloride (98-107) mmol/L Carbon Dioxide (22-30) mmol/L Anion Gap (5-15) MEQ/L BUN (9-20) mg/dL Creatinine (0.66-1.25) mg/dL Estimated GFR ML/MIN Glucose (74-106) mg/dL Lactic Acid (0.4-2.0) Calcium (8.4-10.2) mg/dL Magnesium (1.6-2.3) mg/dL Total Bilirubin (0.2-1.3) mg/dL AST (17-59) U/L ALT (0-50) U/L Alkaline Phosphatase (38-126) U/L Troponin I (0.000-0.034) ng/mL NT-Pro-B Natriuret Pep 323 (<300) pg/mL Serum Total Protein (6.3-8.2) g/dL Albumin (3.5-5.0) g/dL Procalcitonin 0.166 H (0.030-0.080) ng/mL Influenza Type A Ag (NEGATIVE) Influenza Type B Ag (NEGATIVE) RSV (PCR) (NEGATIVE) SARS-CoV-2 (PCR) (NEGATIVE) Group A Strep Antibody NOT DETECTED (NEGATIVE) 01/16/23 01/16/23 01/16/23 Range/Units 21:25 21:25 21:25 WBC (4.0-10.5) x10^3/uL RBC (4.1-5.6) x10^6/uL Hgb (12.5-18.0) g/dL Hct (42-50) % MCV (78-100) fL MCH (26-32) pg MCHC (32-36) g/dL RDW (11.5-14.0) % Plt Count (150-450) x10^3/uL MPV (7.5-11.0) fL Gran % (36.0-66.0) % Immature Gran % (Auto) (0.00-0.4) % Nucleat RBC Rel Count (0.00-0.1) % Eos # (Auto) (0-0.5) x10^3/uL Immature Gran # (Auto) (0.00-0.03) x10^3u/L Absolute Lymphs (auto) (1.0-4.6) x10^3/uL Absolute Monos (auto) (0.0-1.3) x10^3/uL Absolute Nucleated RBC (0.00-0.01) x10^3u/L Lymphocytes % (24.0-44.0) % Monocytes % (0.0-12.0) % Eosinophils % (0.00-5.0) % Basophils % (0.0-0.4) % Absolute Granulocytes (1.4-6.9) x10^3/uL Basophils # (0-0.4) x10^3/uL Sodium 137 (137-145) mmol/L Potassium 4.2 (3.5-5.1) mmol/L Chloride 101 (98-107) mmol/L Carbon Dioxide 23 (22-30) mmol/L Anion Gap 16.6 H (5-15) MEQ/L BUN 14 (9-20) mg/dL Creatinine 0.72 (0.66-1.25) mg/dL Estimated GFR 102.7 ML/MIN Glucose 245 H (74-106) mg/dL Lactic Acid 3.2 H (0.4-2.0) Calcium 9.9 (8.4-10.2) mg/dL Magnesium 1.5 L (1.6-2.3) mg/dL Total Bilirubin 0.60 (0.2-1.3) mg/dL AST 64 H (17-59) U/L ALT 88 H (0-50) U/L Alkaline Phosphatase 114 (38-126) U/L Troponin I 0.014 (0.000-0.034) ng/mL NT-Pro-B Natriuret Pep (<300) pg/mL Serum Total Protein 8.3 H (6.3-8.2) g/dL Albumin 4.6 (3.5-5.0) g/dL Procalcitonin (0.030-0.080) ng/mL Influenza Type A Ag (NEGATIVE) Influenza Type B Ag (NEGATIVE) RSV (PCR) (NEGATIVE) SARS-CoV-2 (PCR) (NEGATIVE) Group A Strep Antibody (NEGATIVE) 01/16/23 01/16/23 Range/Units 21:25 21:20 WBC 5.9 (4.0-10.5) x10^3/uL RBC 5.20 (4.1-5.6) x10^6/uL Hgb 16.0 (12.5-18.0) g/dL Hct 47.7 (42-50) % MCV 91.7 (78-100) fL MCH 30.8 (26-32) pg MCHC 33.5 (32-36) g/dL RDW 12.5 (11.5-14.0) % Plt Count 145 L (150-450) x10^3/uL MPV 11.4 H (7.5-11.0) fL Gran % 52.4 (36.0-66.0) % Immature Gran % (Auto) 0.3 (0.00-0.4) % Nucleat RBC Rel Count 0.0 (0.00-0.1) % Eos # (Auto) 0.11 (0-0.5) x10^3/uL Immature Gran # (Auto) 0.02 (0.00-0.03) x10^3u/L Absolute Lymphs (auto) 2.13 (1.0-4.6) x10^3/uL Absolute Monos (auto) 0.48 (0.0-1.3) x10^3/uL Absolute Nucleated RBC 0.00 (0.00-0.01) x10^3u/L Lymphocytes % 36.2 (24.0-44.0) % Monocytes % 8.2 (0.0-12.0) % Eosinophils % 1.9 (0.00-5.0) % Basophils % 1.0 (0.0-0.4) % Absolute Granulocytes 3.08 (1.4-6.9) x10^3/uL Basophils # 0.06 (0-0.4) x10^3/uL Sodium (137-145) mmol/L Potassium (3.5-5.1) mmol/L Chloride (98-107) mmol/L Carbon Dioxide (22-30) mmol/L Anion Gap (5-15) MEQ/L BUN (9-20) mg/dL Creatinine (0.66-1.25) mg/dL Estimated GFR ML/MIN Glucose (74-106) mg/dL Lactic Acid (0.4-2.0) Calcium (8.4-10.2) mg/dL Magnesium (1.6-2.3) mg/dL Total Bilirubin (0.2-1.3) mg/dL AST (17-59) U/L ALT (0-50) U/L Alkaline Phosphatase (38-126) U/L Troponin I (0.000-0.034) ng/mL NT-Pro-B Natriuret Pep (<300) pg/mL Serum Total Protein (6.3-8.2) g/dL Albumin (3.5-5.0) g/dL Procalcitonin (0.030-0.080) ng/mL Influenza Type A Ag NEGATIVE (NEGATIVE) Influenza Type B Ag NEGATIVE (NEGATIVE) RSV (PCR) NEGATIVE (NEGATIVE) SARS-CoV-2 (PCR) NEGATIVE (NEGATIVE) Group A Strep Antibody (NEGATIVE) - Progress Progress: improved Air Movement: good Progress Note: 01/16/23 23:52 62-year-old is evaluated in the ER for difficulty swallowing even his own saliva and has chronic swelling around upper body/neck which seems to be pressing on the neck. Patient is very anxious, tachycardic on presentation. Lungs fairly clear to auscultation. He is not hypoxic. I have given him Solu-Medrol and fluid bolus and patient heart rate improved to low 100s. He is placed on 2 L oxygen for almost an hour and improved and currently off of oxygen with saturation around 96%. Patient feels much better on reevaluation. I have obtained CT soft tissue neck which showed no compromise of airway. CT chest is negative for any acute cardiopulmonary findings. Has normal white count, lactate of 3.2 and elevated procalcitonin 1.19. I have ordered a dose of ceftazidime. I have obtained strep flu COVID and RSV which are all negative. I believe patient has source of infection in the throat although his strep is negative. I recommended observation admission and I have discussed with Dr. Cordova, reviewed history, workup and agreed with admission. I have discussed resu lts of workup and plan of admission with patient who initially was okay with that but later on decided to leave AGAINST MEDICAL ADVICE as his fell in the parking lot earlier and has nobody to drive her back home. Discussed with patient about risk of leaving AGAINST MEDICAL ADVICE which would not only delay the diagnosis, worsening of condition/morbidity leading to severe respiratory compromise and even but he still wants to leave. Patient signed paper work and walked out of the ER. He is not confused or altered at all. He is on room air with saturation around 96% and heart rate of 102 with a stable blood pressure. He is advised to follow-up with his primary care in the morning which patient agrees with. Blood Culture(s) Obtained: Yes Antibiotics given: Yes Counseled pt/family regarding: lab results, diagnosis, need for follow-up, rad results, smoking cessation Medical Desision Making - Independent Historian Additional History obtained from: Spouse - Discussion of managment Care discussed with:: hospitalist (Dr. Cordova [id number]) Reviewed:: Test results, Need for additional workup Agreed on:: Treatment plan Will see patient: in hospital - Diagnostic Testing Diagnostic test were ordered, analyzed, and reviewed by me: Yes Radiological Interpretation: Reviewed by me, Teleradiologist Report - Risk of complications The pt has a high risk of morbidity or mortality based on: Decision regarding hospitilization or escalation of hosp level of care - Departure Departure Disposition: AMA Clinical Impression: Acute pharyngitis, Sepsis, COPD exacerbation Condition: Stable Critical Care Time: No Referrals: JAIME DIAS DO [Primary Care Provider] - Follow up with PCP 1 day Instructions: Chronic Obstructive Pulmonary Disease, Shortness of Breath (Dyspnea) (DC), Exacerbation of COPD (DC) Additional Instructions: Follow-up with your primary care for reevaluation in the morning. Return to ER for any worsening.
[2023-01-17 00:05] VITALS: RESP 18
[2023-01-17 00:34] VITALS: O2SAT 95
[2023-01-17 00:36] VITALS: BP 145/79; PULSE 87
== END 2023-01-17 00:34 | disposition left against medical advice (07) ==
LOC: ED 20:34
DX: A41.9 Sepsis, unspecified organism (principal); J02.9 Acute pharyngitis, unspecified; J44.1 Chronic obstructive pulmonary disease with (acute) exacerbation; R13.10 Dysphagia, unspecified; R05.1 Acute cough; I11.0 Hypertensive heart disease with heart failure; I50.9 Heart failure, unspecified; E78.5 Hyperlipidemia, unspecified; E11.9 Type 2 diabetes mellitus without complications; Z79.02 Long term (current) use of antithrombotics/antiplatelets; Z79.4 Long term (current) use of insulin; Z79.899 Other long term (current) drug therapy; Z72.0 Tobacco use
CPT/HCPCS: 0241U; 36000; 36415; 70490; 71250; 80053; 83605; 83735; 83880; 84145; 84484; 85025; 87040; 87651; 93005; 96360; 96365; 96374; 99284; J0713; J2930; A9270-GY

== ENCOUNTER 2023-11-04 22:53 | Emergency (ER) | payer MEDICARE ==
--- NOTE | 2023-11-04 23:04 | ERPHSYRPT ---
- History of Present Illness Time Seen by Provider: 11/04/23 23:03 Historian: patient, family Exam Limitations: no limitations Physician History: This is an overweight 62-year-old white male patient who arrives by private vehicle (patient drove himself) because of right flank pain. Patient has had similar symptoms in the past. We document similar symptoms on 07/27/2022 through our emergency department. He states he does have "kidney stone" history. Patient is a daily smoker of cigarettes. The pain came on 2 days ago and today was more intense. He describes the pain as a sharp right flank pain. I did review a CT scan without contrast impression that was read by the radiologist dated 07/27/2022 which showed the left lobe of the liver hypodense mass as well a s indeterminate right renal masses x 3. Patient denies chest pain. He currently denies shortness of breath. He does have a history of chronic COPD, insulin-dependent diabetes, hypertension, CHF, hyperlipidemia, anxiety and gastroesophageal reflux disease. He has not had any nausea or vomiting sy mptoms. Timing/Duration: day(s) (2) Quality: sharpness, stabbing Abdominal Pain Onset Location: flank (Right) Pain Radiation: no radiation Severity of Pain-Max: moderate Severity of Pain-Current: moderate Modifying Factors: Improves With: nothing Associated Symptoms: denies symptoms Previous symptoms: same symptoms as today, no recent treatment Allergies/Adverse Reactions: No Known Drug Allergies Allergy (Verified 11/04/23 23:00) Home Medications: ARIPiprazole [Aripiprazole] 15 mg PO DAILY 03/21/21 [History] Alendronate Sodium 70 mg [Fosamax 70 MG] 70 mg PO WEEKLY 03/21/21 [History] Aspirin EC 81 mg [Ecotrin 81 mg] 81 mg PO DAILY 03/21/21 [History] Atorvastatin Calcium 80 mg PO DAILY 03/21/21 [History] Clopidogrel Bisulfate [PLAVIX Tablet] 75 mg PO DAILY 03/21/21 [History] Enalapril Maleate 10 mg [Vasotec 10 MG] 10 mg PO BID 03/21/21 [History] Ezetimibe 10 mg [Zetia 10 MG] 10 mg PO HS 03/21/21 [History] Fenofibrate,Micronized 145 mg* [Tricor 145 MG] 145 mg PO DAILY 03/21/21 [H istory] Furosemide 40 mg [Lasix 40 MG] 40 mg PO DAILY 03/21/21 [History] Gabapentin [Neurontin ] 300 mg PO BID 03/21/21 [History] Insulin Lispro [Humalog] 400 unit SQ 0730 03/21/21 [History] Isosorbide Mononitrate 30 mg [Imdur 30 MG] 30 mg PO DAILY 03/21/21 [History] Metoprolol Tartrate 25 mg [Lopressor 25MG Tab] 25 mg PO BID 03/21/21 [History] Potassium Chloride 10 meq PO DAILY 03/21/21 [History] Pramipexole Di-HCl [Pramipexole Dihydrochloride] 0.25 mg PO HS 03/21/21 [Hi story] Venlafaxine HCl [Venlafaxine HCl ER] 150 mg PO HS 03/21/21 [History] clonazePAM 0.5 mg PO HS 03/21/21 [History] icosapent ethyL [Vascepa] 2 gm PO BID 03/21/21 [History] Insulin Lispro 170 unit SQ DINNER 03/26/21 [History] Insulin Lispro [Humalog] 420 unit SQ LUNCH 03/26/21 [History] Hx Tetanus, Diphtheria Vaccination/Date Given: Yes Hx Influenza Vaccination/Date Given: Yes Hx Pneumococcal Vaccination/Date Given: Yes Travel Risk - International Travel Have you traveled outside of the country in past 3 weeks: No - Emerging Infectious Disease Are you exhibiting symptoms associated with any current EIDs: No - Review of Systems Constitutional: No Symptoms Eyes: No Symptoms Ears, Nose, & Throat: No Symptoms Respiratory: No Symptoms Cardiac: No Symptoms Abdominal/Gastrointestinal: No Symptoms Genitourinary Symptoms: Flank Pain (Right flank pain) Musculoskeletal: No Symptoms Skin: No Symptoms Neurological: No Symptoms Psychological: No Symptoms Endocrine: No Symptoms Hematologic/Lymphatic: No Symptoms Immunological/Allergic: No Symptoms All Other Systems: Reviewed and Negative - Past Medical History Pertinent Past Medical History: Yes Neurological History: No Pertinent History ENT History: No Pertinent History Cardiac History: Congestive Heart Failure, Hypertension Respiratory History: COPD Endocrine Medical History: Diabetes Type II Musculoskeletal History: No Pertinent History GI Medical History: Cirrhosis History: No Pertinent History Psycho-Social History: Anxiety, Depression Male Reproductive Disorders: No Pertinent History Other Medical History: elevated liver enzymes - Past Surgical History Past Surgical History: Yes Neuro Surgical History: No Pertinent History Cardiac: No Pertinent History Respiratory: No Pertinent History Gastrointestinal: Appendectomy Genitourinary: No Pertinent History Musculoskeletal: Orthopedic Surgery Male Surgical History: No Pertinent History Other Surgical History: wrist bart Significant Family History: no pertinent family hx - Social History Smoking Status: Current every day smoker How long have you smoked: 50+ Exposure to second hand smoke: Yes Drug Use: none Patient Lives Alone: No - Nursing Vital Signs Nursing Vital Signs: Initial Vital Signs Temperature 98.2 F 11/04/23 23:00 Pulse Rate 117 H 11/04/23 23:00 Respiratory Rate 11/04/23 23:00 Blood Pressure 149/73 11/04/23 23:00 O2 Sat by Pulse Oximetry 95 11/04/23 23:00 Pain Scale Pain Intensity 4 - Physical Exam General Appearance: no apparent distress, alert, anxiety, obese Eye Exam: PERRL/EOMI, eyes nml inspection Ears, Nose, Throat Exam: normal ENT inspection, moist mucous membranes Neck Exam: normal inspection, non-tender, supple, full range of motion Respiratory Exam: normal breath sounds, lungs clear, airway intact, No chest tenderness, No respiratory distress Cardiovascular Exam: tachycardia Gastrointestinal/Abdomen Exam: soft, normal bowel sounds, No tenderness Rectal Exam: not done Back Exam: normal inspection, normal range of motion, No CVA tenderness, No vertebral tenderness Extremity Exam: normal inspection, normal range of motion, pelvis stable Neurologic Exam: alert, oriented x 3, cooperative, drapery hand II-XII nml as tested, nml cerebellar function, nml station & gait, sensation nml Skin Exam: normal color, warm, dry Lymphatic Exam: No adenopathy SpO2 Interpretation: normal O2 Delivery: Room Air - Course Nursing assessment & vital signs reviewed: Yes Ordered Tests: Active Orders 24 hr Category Date Time Status IV Insertion STAT Care 11/04/23 23:26 Active ABDOMEN AND PELVIS W/0 CONTRAS [CT] Stat Exams 11/04/23 23:26 Completed AMYLASE Stat Lab 11/04/23 23:38 Completed CBC W DIFF Stat Lab 11/04/23 23:38 Completed CMP Stat Lab 11/04/23 23:38 Completed LIPASE Stat Lab 11/04/23 23:38 Completed UA W/RFX UR CULTURE Stat Lab 11/04/23 23:38 Completed Medication Summary Discontinued Medications Generic Name Dose Route Start Last Admin Trade Name Geri PRN Reason Stop Dose Admin Hydromorphone HCl 1 mg 11/04/23 23:26 11/04/23 23:46 Hydromorphone 1 Mg/1ml Inj IV 11/04/23 23:27 1 mg STAT ONE Administration Hydromorphone HCl Confirm 11/04/23 23:30 Hydromorphone 1 Mg/1ml Inj Administered 11/04/23 23:31 Dose 1 mg .ROUTE .STK-MED ONE Hydromorphone HCl Confirm 11/04/23 23:45 Hydromorphone 1 Mg/1ml Inj Administered 11/04/23 23:46 Dose 1 mg .ROUTE .STK-MED ONE Sodium Chloride 1,000 mls @ 999 mls/hr 11/04/23 23:26 11/05/23 00:45 Sodium Chloride 0.9% 1000 Ml IV 11/05/23 00:26 Infused .Q1H1M STA Infusion Sodium Chloride Confirm 11/04/23 23:30 Sodium Chloride 0.9% 1000 Ml Administered 11/04/23 23:31 Dose 1,000 mls @ ud .ROUTE .STK-MED ONE Insulin Human Regular 10 unit 11/05/23 01:20 Insulin Regular, Human 1 Unit IV 11/05/23 01:21 STAT ONE Ondansetron HCl 4 mg 11/04/23 23:26 11/04/23 23:31 Ondansetron Hcl 4 Mg/2 Ml Vial IV 11/04/23 23:27 4 mg STAT ONE Administration Ondansetron HCl Confirm 11/04/23 23:29 Ondansetron Hcl 4 Mg/2 Ml Vial Administered 11/04/23 23:30 Dose 4 mg .ROUTE .STK-MED ONE Lab/Rad Data: Laboratory Result Diagrams 11/04/23 23:38 11/04/23 23:38 Laboratory Results 11/04/23 11/04/23 11/04/23 Range/Units 23:38 23:38 23:38 WBC 4.9 (4.23-9.07) x10^3/uL RBC 4.69 (4.63-6.08) x10^6/uL Hgb 14.3 (13.7-17.5) g/dL Hct 41.6 (40.1-51.0) % MCV 88.7 (79.0-92.2) fL MCH 30.5 (25.7-32.2) pg MCHC 34.4 (32.3-36.5) g/dL RDW 12.8 (11.6-14.4) % Plt Count 147 L (163-337) x10^3/uL MPV 11.3 (9.4-12.4) fL Gran % 57.7 (34.0-67.9) % Immature Gran % (Auto) 0.6 H (0.001-0.429) % Nucleat RBC Rel Count 0.0 (0.00-0.2) % Eos # (Auto) 0.05 (0.04-0.54) x10^3/uL Immature Gran # (Auto) 0.03 (0.001-0.031) x10^3u/L Absolute Lymphs (auto) 1.06 L (1.32-3.57) x10^3/uL Absolute Monos (auto) 0.89 H (0.30-0.82) x10^3/uL Absolute Nucleated RBC 0.00 (0.00-0.012) x10^3u/L Lymphocytes % 21.5 L (21.8-53.1) % Monocytes % 18.0 H (5.3-12.2) % Eosinophils % 1.0 (0.8-7.0) % Basophils % 1.2 (0.2-1.2) % Absolute Granulocytes 2.85 (1.78-5.38) x10^3/uL Basophils # 0.06 (0.01-0.08) x10^3/uL Sodium 136 (135-145) mmol/L Potassium 4.0 (3.5-5.1) mmol/L Chloride 96 L (98-107) mmol/L Carbon Dioxide 28 (22-30) mmol/L Anion Gap 15.7 H (5-15) MEQ/L BUN 10 (9-20) mg/dL Creatinine 0.80 (0.66-1.25) mg/dL Estimated GFR 99.4 ML/MIN Glucose 466 H (74-106) mg/dL Calcium 9.2 (8.4-10.2) mg/dL Total Bilirubin 0.50 (0.2-1.3) mg/dL AST 67 H (17-59) U/L ALT 71 H (0-50) U/L Alkaline Phosphatase 121 (38-126) U/L Serum Total Protein 6.9 (6.3-8.2) g/dL Albumin 4.1 (3.5-5.0) g/dL Amylase 52 (30-110) U/L Lipase 51 (23-300) U/L Urine Color Yellow (Yellow) Urine Appearance Clear (Clear) Urine pH 5.5 (4.6-8.0) Ur Specific [place] >=1.030 A (1.005-1.030) Urine Protein Negative (Negative) Urine Glucose (UA) >=1000 A (Negative) mg/dL Urine Ketones Negative (Negative) Urine Blood Negative (Negative) Urine Nitrite Negative (Negative) Urine Bilirubin Negative (Negative) Urine Urobilinogen 1.0 A (0.2) mg/dL Ur Leukocyte Esterase Negative (Negative) U Hyaline Cast (Auto) NONE SEEN (0-2) /LPF Urine Microscopic RBC 0-2 (0-5) /HPF Urine Microscopic WBC 0-2 (0-5) /HPF Ur Epithelial Cells None Seen (None Seen) /HPF Urine Bacteria None Seen (None Seen) /HPF Urine Culture Reflexed NO (NO) - Progress Progress: improved, pain not gone completely Progress Note: 11/04/23 23:49 My medical decision making and the assignment of moderate complexity to this patient's medical issue today is based on review of the patient's past medical history, review patient's medication list, review of patient drug allergy list, history of present illness and physical findings on examination. The workup in this patient includes placement of intravenous line, infusion of normal saline solution, urinalysis, CBC, CMP, amylase, lipase, CT scan of the abdomen pelvis without contrast. Differential diagnosis includes but is not limited to ureterolithiasis, pancr eatitis, acute colitis/diverticulitis, bowel obstruction, back pain, aneurysm 11/05/23 01:43 I interpreted the patient's laboratory data results. Based on the laboratory data results, there is only a mildly elevated transaminases but no other acute, emergent medical issue. CT scan of the abdomen pelvis without contrast shows bilateral kidney tiny calcifications without obstructive uropathy. There is small left adrenal lipoma. There is bulky adrenal glands bilaterally. There is prostatomegaly, right renal cysts, splenic and hepatic parenchymal calcifications. Extensive arthrosclerotic calcifications in the aorta, soft tissue edema with overlying skin thickening identified along the anterior abdominal wall bilaterally at the level of the umbilicus. Counseled pt/family regarding: lab results, diagnosis, need for follow-up, rad results Medical Desision Making - Diagnostic Testing Diagnostic test were ordered, analyzed, and reviewed by me: Yes Radiological Interpretation: Reviewed by me, Teleradiologist Report - Risk of complications Low Risk: Low risk of morbidity from additional dx testing or treatment - Departure Departure Disposition: Home Clinical Impression: Right flank pain, Renal cyst, right, Splenic calcification, Hepatic calcification, Adrenal abnormality Condition: Stable Critical Care Time: No Additional Instructions: Drink plenty of clear liquids and advance your diet slowly. Call your primary care provider on 11/07/2023 to make arrangements for a follow-up appointment for further evaluation and management of the findings on CT scan of the abdomen pelvis. Asked to be seen within 3 to 5 days.
[2023-11-04 23:22] VITALS: RESP 24; TEMP 98.2
[2023-11-04] MEDS ORDERED: Zofran 4 MG/2 ML VIAL ONE (23:29)
[2023-11-04] MEDS ORDERED: Sodium Chloride 0.9% 1000 ML 1,000 ML ONE (23:30)
[2023-11-04] MEDS ORDERED: Hydromorphone 1 mg/ml Injection ONE ×2 (23:30→23:45)
[2023-11-04] MEDS: Sodium Chloride 0.9% 1000 ML 1,000 ML IV STA (23:30)
[2023-11-04] MEDS: Zofran 4 MG/2 ML VIAL IV ONE (23:31)
[2023-11-04] MEDS: Hydromorphone 1 mg/ml Injection IV ONE (23:31)
[2023-11-04 23:46] LABS: Absolute Neutrophil Ct (ANC) 2.85 x10^3/uL (1.78-5.38); BASOPHIL % 1.2 % (0.2-1.2); Basophil (Absolute #) 0.06 x10^3/uL (0.01-0.08); Eosinophil (Absolute #) 0.05 x10^3/uL (0.04-0.54); Hematocrit 41.6 % (40.1-51.0); Hemoglobin 14.3 g/dL (13.7-17.5); IMMATURE GRAN # 0.03 x10^3u/L (0.001-0.031); IMMATURE GRAN % 0.6 % (0.001-0.429); Lymphocyte (Absolute #) 1.06 x10^3/uL (1.32-3.57); Lymphocytes % 21.5 % (21.8-53.1); Mean Cell Volume 88.7 fL (79.0-92.2); Mean Corpuscular Hemoglobin 30.5 pg (25.7-32.2); Mean Corpuscular Hgb Concent. 34.4 g/dL (32.3-36.5); Mean Platelet Volume 11.3 fL (9.4-12.4); Monocyte (Absolute #) 0.89 x10^3/uL (0.30-0.82); Neutrophil % 57.7 % (34.0-67.9); Platelet Count 147 x10^3/uL (163-337); Red Blood Count 4.69 x10^6/uL (4.63-6.08); Red Cell Distribution Width 12.8 % (11.6-14.4); White Blood Count 4.9 x10^3/uL (4.23-9.07)
[2023-11-04 23:57] LABS: ALBUMIN 4.1 g/dL (3.5-5.0); ANION GAP 15.7 MEQ/L (5-15); BILIRUBIN,TOTAL 0.5 mg/dL (0.2-1.3); Calcium 9.2 mg/dL (8.4-10.2); Creatinine 1 0.8 mg/dL (0.66-1.25); EST GLOMERULAR FILTRATION RATE 99.4 ML/MIN; Total Protein 6.9 g/dL (6.3-8.2)
[2023-11-05 00:37] LABS: Appearance Clear (Clear); Bacteria None Seen /HPF (None Seen); Bilirubin Negative (Negative); Blood Negative (Negative); Epithelial Cells None Seen /HPF (None Seen); Glucose, Urine >=1000 mg/dL (Negative); Hyaline Casts NONE SEEN /LPF (0-2); Ketones Negative (Negative); Leukocyte Esterase Negative (Negative); Nitrite Negative (Negative); Ph 5.5 (4.6-8.0); Protein,Urine Dip Negative (Negative); RBC 0-2 /HPF (0-5); Specific Gravity >=1.030 (1.005-1.030); WBC 0-2 /HPF (0-5)
[2023-11-05 00:39] LABS: ADD URINE CULTURE? NO (NO)
[2023-11-05 01:16] VITALS: O2SAT 96
--- NOTE | 2023-11-05 01:36 | XRAY ---
CLINICAL HISTORY: Right flank pain COMPARISON: No prior studies are available for comparison. TECHNIQUE: Non-contrast CT of the abdomen and pelvis was performed, with the following protocol: axial images, and reconstructed coronal and sagittal images. One of the following dose reduction techniques was utilized for this exam: Automated exposure control, adjustment of the mA and/or kV according to patient size, and use of iterative reconstruction. FINDINGS: Abdomen: Liver: Normal in size, shape, and density. No suspicious focal lesions, cysts, or masses were identified. Tiny punctate calcific densities are identified scattered within the liver parenchyma likely representing small calcified granulomas. Gallbladder and Biliary System: The gallbladder is normal in size and shape. No wall thickening, pericholecystic fluid, or gallstones were identified. Pancreas: Pancreatic head, body, and tail are visualized and appear normal in size and density. No pancreatic masses or calcifications were noted. Spleen: Normal in size, shape, and density. Tiny multiple punctate calcific densities are identified scattered within the splenic parenchyma representing tiny calcified granulomas. No suspicious splenic lesions or masses were identified. Kidneys and Adrenal Glands: Both kidneys are normal in size, shape, and position. Cortical thickness is within normal limits. Tiny calcific densities are identified in bilateral kidneys which may represent tiny nonobstructing calculi/vascular calcifications. No evidence of hydronephrosis bilaterally. Minimal nonspecific perinephric fat stranding is noted bilaterally. A bilobed exophytic cyst is identified in the right inferior renal pole measuring 56 x 38 mm on coronal section. A small exophytic cyst is identified in the interpolar region of the right kidney measuring 8 mm in size. Bilateral ureters are normal in caliber without intraluminal calculus or hydroureter. A small fat density lesion is identified within the medial limb of the left adrenal gland measuring 9 mm in size likely representing an adrenal lipoma. The left adrenal gland appears bulky. Abdominal Aorta and Vessels: Extensive atherosclerotic calcifications are identified in the abdominal aorta and some of its major branches including the common iliac arteries bilaterally resulting in areas of luminal stenosis. Pelvis: Urinary Bladder: Urinary bladder is suboptimally distended. No intraluminal lesions. Prostate: Prostate gland appears mildly enlarged, indenting the base of urinary bladder with intraprostatic calcifications. Seminal Vesicles: Normal appearance without abnormal enlargement or mass. Peritoneal and Retroperitoneal Structures: No free fluid or abnormal fluid collections were identified within the abdomen or pelvis. No lymphadenopathy was noted. Soft tissue edema with overlying skin thickening is identified along the anterior abdominal wall bilaterally at the level of the umbilicus. A local examination is advised. Bowel: The visualized bowel loops are normal in caliber and appearance. No evidence of bowel obstruction or wall thickening. Appendix is not separately visualized. Stomach appears unremarkable. Bones and Soft Tissues: Multilevel degenerative changes are identified in the visualized spine with calcification of the anterior longitudinal ligament. Reduced bone mineralization is identified. Degenerative changes are also identified in bilateral sacroiliac joints with possible sacroiliitis. Bilateral hip joint osteoarthritis is also noted. IMPRESSION: 1. No evidence of obstructive uropathy bilaterally. Tiny calcific densities within bilateral kidneys, vascular versus nonobstructing renal calculi. 2. Right-sided simple renal cortical cysts with the largest bilobed cyst along the right inferior renal pole. 3. Small left adrenal lipoma. Bulky adrenal glands bilaterally. 4. Prostatomegaly, indenting the base of urinary bladder. 5. Tiny splenic and hepatic parenchymal calcificaitons, likely representing calcified granulomas. 6. Extensive atherosclerotic calcifications in the aorta and some of its major branches. 7. Soft tissue edema with overlying skin thickening is identified along the anterior abdominal wall bilaterally at the level of the umbilicus. Local examination is advised. Electronically Signed by: Ankita Salazar MD. (11/05/2023 01:32:02 EDT)
[2023-11-05] MEDS ORDERED: HUMULIN R ONE (01:43)
[2023-11-05] MEDS: HUMULIN R IV ONE (01:43)
[2023-11-05 02:32] VITALS: BP 118/71; PULSE 88
== END 2023-11-05 02:30 | disposition home or self-care (01) ==
LOC: ED 22:53
DX: N28.1 Cyst of kidney, acquired (principal); R10.9 Unspecified abdominal pain; F17.200 Nicotine dependence, unspecified, uncomplicated; E11.9 Type 2 diabetes mellitus without complications; I11.0 Hypertensive heart disease with heart failure; I50.9 Heart failure, unspecified; Z79.899 Other long term (current) drug therapy; Z87.442 Personal history of urinary calculi; Z79.01 Long term (current) use of anticoagulants
CPT/HCPCS: 36000; 36415; 74176; 80053; 81001; 82150; 82947; 83690; 85025; 96374; 96375; 99284; J1170; J1815; J2405